=== PATIENT | female | born 1950 | race Caucasian/White ===

== ENCOUNTER → 2016-07-11 | Outpatient (CLI) | payer MEDICAID, OTHER | LOC: M RAD 08:24 | PROVIDERS: ATTEND Neurological Surgery | DX: M47.896 Other spondylosis, lumbar region (principal); Z53.9 Procedure and treatment not carried out, unspecified reason ==

== ENCOUNTER → 2016-07-18 | Outpatient (CLI) | payer OTHER ==
--- NOTE | 2016-07-18 09:49 | REP ---
Clinical: Spondylosis. Technique: AP, lateral, bilateral oblique, flexion/extension, and coned-down views of the lumbosacral spine. Comparison: None. Findings: Age-related osteopenia is appreciated. There is no evidence for acute fracture / compression injury. Advanced degenerative disc osteophyte complex at the L1-L2 level includes anterior osteophytes with endplate sclerosis and disc space narrowing. Anterolisthesis at the L4-5 level of approximately 12 mm noted. Diffuse hypertrophic facet changes noted throughout the lumbar spine. Impression: Degenerative changes as described above. No acute fracture / compression injury. Signed by Bebo García MD 07/18/2016 09:40 A
--- NOTE | 2016-07-18 09:51 | REP ---
Clinical: Spondylosis. Technique: AP, lateral, flexion/extension, swimmer's, bilateral oblique and open mouth views. Comparison: None. Findings: Moderate to advanced multilevel degenerative changes are appreciated. Findings include osteophytosis, endplate sclerosis/irregularity and disc space narrowing most pronounced at the C4-5, C5-6, and C6-7 levels. Flexion suggests 1.5 mm of anterolisthesis at the C3-4 level. Acute fracture / compression injury. Spinous processes are intact. Prevertebral soft tissues are normal. Open mouth view demonstrates normal C1-C2 articulation and odontoid process. Impression: Moderate to advanced multilevel degenerative changes. Signed by Bebo García MD 07/18/2016 09:41 A
--- NOTE | 2016-07-20 06:12 | REP ---
MRI LUMBAR SPINE WITHOUT CONTRAST: HISTORY: Back pain. Decreased signal intensity on T2-weighted images is present in the lumbar intervertebral discs. The discs are decreased in height. These findings are consistent with disc degeneration. A diffuse disc bulge with associated osteophyte formation is present in the L1-2 level. There is minimal compression of the thecal sac. The L1 nerves exit the neural foramina without compression. A diffuse disc bulge is present at the L2-3 level. There is minimal compression of the thecal sac. The L2 nerves exit the neural foramina without compression. There is no disc bulge or herniation at the L3-4 level. The L3 nerves exit the neural foramina without compression. A diffuse disc bulge and small central disc protrusion are present at the L4-5 level. There is hypertrophy of the ligamenta flava and posterior articulating facets. There are 5 mm of grade 1 spondylolisthesis of L4 on 5. These findings produce moderate central canal stenosis. There is compression of the L4 nerves in the neural foramina. A diffuse disc bulge is present at the L5-S1 level. This abuts the thecal sac and S1 nerves. There is hypertrophy of the posterior articulating facets. The L5 nerves exit the neural foramina without compression. The conus medullaris is normal in appearance terminating at the level of the T12-L1 intervertebral disc. Increased signal intensity on T2-weighted images is present in the end plates of the L1 and 2 vertebral bodies. This represents degenerative change. A 4.6 cm cyst is present in the right kidney. IMPRESSION: 1. Diffuse disc bulge with associated osteophyte formation at the L1-2 level with minimal thecal sac compression. 2. Diffuse disc bulge at the L2-3 level with minimal thecal sac compression. 3. Moderate central canal stenosis at the L4-5 level secondary to disc bulge, disc protrusion, ligamentous and facet hypertrophy, and grade 1 spondylolisthesis. There is compression of the L4 nerves in the neural foramina. 4. Diffuse disc bulge at the L5-S1 level. This abuts the thecal sac and S1 nerves. 5. There is a 4.6 cm right renal cyst. Ultrasound may be helpful for further evaluation. Signed by Robert Haynes MD 07/20/2016 08:24 A
== END ==
LOC: M RAD 09:09
PROVIDERS: ATTEND Neurological Surgery
DX: M47.896 Other spondylosis, lumbar region (principal); M47.892 Other spondylosis, cervical region; M51.26 Other intervertebral disc displacement, lumbar region; M51.27 Other intervertebral disc displacement, lumbosacral region; M48.06 Spinal stenosis, lumbar region; M43.16 Spondylolisthesis, lumbar region; N28.1 Cyst of kidney, acquired

== ENCOUNTER 2016-09-17 18:34 | Emergency (ER) | payer OTHER ==
[~2016-09-17] VITALS: Ht 152.4 cm; Wt 76.2 kg
[2016-09-17] MEDS ORDERED: ALBU17IN INH (19:04)
[2016-09-17] MEDS ORDERED: METF500T4 PO (19:04)
[2016-09-17] MEDS ORDERED: VITA50003 PO (19:04)
[2016-09-17] MEDS ORDERED: GLYB5TA PO (19:04)
[2016-09-17] MEDS ORDERED: SIMV20TA2 PO (19:04)
[2016-09-17] MEDS ORDERED: LOSA50TA20 PO (19:04)
[2016-09-17] MEDS ORDERED: METO50TA2 PO (19:04)
[2016-09-17] MEDS ORDERED: CITA40TA4 PO (19:04)
[2016-09-17 20:54] LABS: VENOUS BASE EXCESS 3.1 (-2.0-2.0); VENOUS O2 SATURATION 61.6 % (60.0-80.0); VENOUS PARTIAL PRESSURE O2 34.4 mmHg (30.0-50.0); VENOUS STANDARD HCO3 26.1 MEQ/L; VENOUS TOTAL CO2 32.4 MEQ/L (24.0-28.0)
[2016-09-17 21:01] LABS: BASO % 0.5 % (0.0-1.0); EOS # 0.1 K/mm3 (0.0-0.50); EOS % 0.8 % (0.0-3.0); LARGE UNSTAINED CELL # 0.2 K/mm3 (0.0-0.4); LARGE UNSTAINED CELL % 2.2 % (0.0-4.0); LYMPH # 2.9 K/mm3 (1.5-4.5); LYMPH % 33.1 % (24.0-44.0); MEAN CORPUSCULAR HEMOGLOBIN 33.1 pg (27.0-33.0); MEAN CORPUSCULAR HGB CONC 33.5 g/dl (32.0-36.5); MEAN CORPUSCULAR VOLUME 98.7 fl (80.0-96.0); MONO # 0.7 K/mm3 (0.0-0.8); MONO % 8.2 % (0.0-5.0); NEUTROPHILS # 4.8 K/mm3 (1.8-7.7); NEUTROPHILS % 55.1 % (36.0-66.0); PLATELET COUNT, AUTOMATED 203 k/mm3 (150-450); RED CELL DISTRIBUTION WIDTH 13.2 % (11.5-14.5); WHITE BLOOD COUNT 8.6 K/mm3 (4.0-10.0)
[2016-09-17 21:21] LABS: ANION GAP 8 MEQ/L (8-16); BLOOD UREA NITROGEN 18 MG/DL (7-18); CALCIUM LEVEL 9.1 MG/DL (8.8-10.2); CARBON DIOXIDE LEVEL 32 MEQ/L (21-32); CHLORIDE LEVEL 100 MEQ/L (98-107); GLOMERULAR FILTRATION RATE > 60.0 (>45); GLUCOSE, FASTING 181 MG/DL (80-110); POTASSIUM SERUM 4.3 MEQ/L (3.5-5.1); SODIUM LEVEL 140 MEQ/L (136-145)
[2016-09-17] MEDS ORDERED: FUROSEMIDE 80 MG TAB PO ONE (21:45)
[2016-09-18] MEDS ORDERED: ENALAPRIL MALEATE 5 MG TAB PO ONE (00:15)
[2016-09-18] MEDS ORDERED: ENALAPRIL MALEATE 10 MG TAB PO ONE (00:15)
[2016-09-18 00:28] VITALS: BP 174/117
[2016-09-18 01:10] VITALS: BP 151/101
--- NOTE | 2016-09-18 01:46 | REP ---
Clinical: Dyspnea. Technique: PA and lateral. Comparison: 04/27/2014. Findings: Cardiac silhouette is stable and upper limits of normal. Atherosclerotic changes to the thoracic aorta noted. Lung agrawal demonstrate chronic changes and scattered basilar atelectasis cannot be excluded. No discrete focal consolidation, effusion, or pneumothorax. Skeletal structures intact. Impression: Chronic stable change. Chronic interstitial changes with possible basilar atelectasis. Signed by Bebo García MD 09/18/2016 01:37 A
--- NOTE | 2016-09-18 20:25 | ECGEPIP ---
Stationary ECG Study [facility] - ED Test Date: 2016-09-17 Pat Name: ERIN ALVAREZ Department: Room: - Gender: F Compliance Advisor: karina : 1950 Requested By: Tootie Gage Order Number: [id number] Reading MD: Cecilia Figueroa Measurements Intervals Cade Rate: 95 P: 45 CT: 144 QRS: -40 QRSD: 136 T: 136 QT: 380 QTc: 479 Interpretive Statements SINUS RHYTHM MARKED LEFT AXIS DEVIATION INTRAVENTRICULAR CONDUCTION DELAY POSSIBLE ANTERIOR MYOCARDIAL INFARCTION, OF INDETERMINATE AGE NO PRIOR FOR COMPARISON Electronically Signed On 09-18-2016 20:25:20 EDT by Cecilia Figueroa
== END 2016-09-18 01:46 | disposition home or self-care (01) ==
LOC: M ED 19:44
DX: I51.9 Heart disease, unspecified (principal); R05 Cough; E11.9 Type 2 diabetes mellitus without complications; I10 Essential (primary) hypertension; J44.9 Chronic obstructive pulmonary disease, unspecified; E78.5 Hyperlipidemia, unspecified; Z79.899 Other long term (current) drug therapy; Z79.82 Long term (current) use of aspirin; Z79.84 Long term (current) use of oral hypoglycemic drugs; Z88.8 Allergy status to other drugs, medicaments and biological substances

== ENCOUNTER 2016-09-23 11:17 | Inpatient (IN) | payer OTHER ==
[~2016-09-23] VITALS: Ht 152.4 cm; Wt 72.9 kg
[2016-09-23] MEDS: VARENICLINE 0.5 MG TABLET PO SCH (09:00)
[~2016-09-23 11:17] MED LIST: ALBU17IN INH; CITA40TA4 PO; GLYB5TA PO; LOSA50TA20 PO; METF500T4 PO; METO50TA2 PO; SIMV20TA2 PO; VITA50003 PO
[2016-09-23 15:00] VITALS: BP 141/98
[2016-09-23] MEDS ORDERED: ALBU17IN INH (15:58)
[2016-09-23] MEDS ORDERED: DRIS50002 PO (15:58)
[2016-09-23] MEDS ORDERED: CITA40TA4 PO (15:58)
[2016-09-23] MEDS ORDERED: GLUCAGON FOR INJ 1 MG VIAL (J1610) SC PRN (16:00)
[2016-09-23] MEDS ORDERED: DEXTROSE 50% 50 ML SYRINGE IV PRN (16:00)
[2016-09-23] MEDS ORDERED: GLUCOSE 4 GM CHEW TABLET PO PRN (16:00)
[2016-09-23 16:05] LABS: BASO % 0.5 % (0.0-1.0); EOS # 0.1 K/mm3 (0.0-0.50); EOS % 1.9 % (0.0-3.0); LARGE UNSTAINED CELL # 0.1 K/mm3 (0.0-0.4); LARGE UNSTAINED CELL % 1.8 % (0.0-4.0); LYMPH # 1.3 K/mm3 (1.5-4.5); MEAN CORPUSCULAR HGB CONC 32.2 g/dl (32.0-36.5); MEAN CORPUSCULAR VOLUME 99.4 fl (80.0-96.0); MONO # 0.6 K/mm3 (0.0-0.8); MONO % 8.6 % (0.0-5.0); NEUTROPHILS # 4.4 K/mm3 (1.8-7.7); NEUTROPHILS % 69.1 % (36.0-66.0); PLATELET COUNT, AUTOMATED 202 k/mm3 (150-450); RED CELL DISTRIBUTION WIDTH 13.3 % (11.5-14.5); WHITE BLOOD COUNT 6.4 K/mm3 (4.0-10.0)
[2016-09-23] MEDS ORDERED: GLYB5TA PO (16:08)
[2016-09-23] MEDS ORDERED: METF-414 PO (16:08)
[2016-09-23] MEDS ORDERED: FURO20TA2 PO (16:08)
[2016-09-23] MEDS ORDERED: LOSA50TA20 PO (16:08)
[2016-09-23] MEDS ORDERED: SIMV20TA2 PO (16:08)
[2016-09-23] MEDS ORDERED: ASPI1TAB PO (16:08)
[2016-09-23] MEDS ORDERED: FISH1000 PO (16:08)
[2016-09-23] MEDS ORDERED: ISOS30TA4 PO (16:08)
[2016-09-23] MEDS ORDERED: METO50TA2 PO (16:08)
--- NOTE | 2016-09-23 16:25 | REP ---
Chest one-view HISTORY: Shortness of breath Comparison: 09/17/2016 Increased density is present in the right lower lobe consistent with atelectasis or infiltrate. Linear density is present in the left lower lobe consistent with scar. The heart is normal in size. The pulmonary vasculature is normal in appearance. Impression: 1. Right lower lobe atelectasis or infiltrate. 2. Left lower lobe scar. Signed by Robert Haynes MD 09/23/2016 04:16 P
[2016-09-23 16:40] LABS: ALBUMIN 3.2 GM/DL (3.2-5.2); ALBUMIN/GLOBULIN RATIO 1.28 (1.00-1.93); ALKALINE PHOSPHATASE 74 U/L (45-117); ALT/SGPT 46 U/L (12-78); ANION GAP 5 MEQ/L (8-16); AST/SGOT 24 U/L (15-37); BILIRUBIN,TOTAL 0.5 MG/DL (0.2-1.0); BLOOD UREA NITROGEN 20 MG/DL (7-18); CALCIUM LEVEL 8.7 MG/DL (8.8-10.2); CARBON DIOXIDE LEVEL 36 MEQ/L (21-32); CHLORIDE LEVEL 99 MEQ/L (98-107); CREATININE FOR GFR 0.85 MG/DL (0.55-1.02); GLOMERULAR FILTRATION RATE > 60.0 (>45); GLUCOSE, FASTING 171 MG/DL (80-110); MAGNESIUM LEVEL 1.5 MG/DL (1.8-2.4); POTASSIUM SERUM 4.1 MEQ/L (3.5-5.1); SODIUM LEVEL 140 MEQ/L (136-145); TOTAL PROTEIN 5.7 GM/DL (6.4-8.2)
[2016-09-23] MEDS: VITAMIN D 1,000 INTERNATIONAL UNITS TABLET PO SCH (17:02)
[2016-09-23] MEDS: HumaLOG INSULIN (NovoLOG) PER UNIT SC SCH ×2 (17:02→20:07)
[2016-09-23] MEDS: HEPARIN SOD (PORCINE) 5000 UNITS/ML VIAL SC SCH ×2 (17:02→21:21)
[2016-09-23] MEDS: FUROSEMIDE 40 MG/4 ML VIAL (J1940) IV SCH (17:03)
--- NOTE | 2016-09-23 17:07 | HPE ---
DATE OF ADMISSION: 09/23/2016 PRIMARY CARE PROVIDER: KALEY Gonzalez SOUND ENGINEER AUDIO CONTROL: Dr. Cole CHIEF COMPLAINT: Shortness of breath and bilateral lower extremity edema. Direct admission from Dr. Coel's office. HISTORY OF PRESENT ILLNESS: This is a 66-year-old female patient with underlying medical history of depression, anxiety, history of hepatitis, vitamin D deficiency, congestive heart failure with systolic dysfunction, diabetes type 2, dyslipidemia, hypertension, obesity, cardiomyopathy with unknown etiology, ejection fraction of 25%, and smoker. Patient was sent in by Dr. Cole's office for congestive heart failure (CHF) exacerbation refractive of treatment as outpatient. As per patient, patient was in her normal state of health but since about six months ago, she started developing lower extremity edema with progressively worsening, with also orthopnea requiring two pillows and dyspnea on exertion that is progressively worsening and accelerated over the past month, has been following with Dr. Cole for the past one month. Denies history of heart attack, sleep apnea, strokes. Patient reported worsening bilateral lower extremity swelling. Reported had Doppler done negative for deep vein thrombosis (DVT). Electrocardiogram has also been done. Currently has just received a LifeVest from Dr. Cole's office. Furthermore, patient denies history of heart attack and is in the process of getting a new stress test but Dr. Cole would like to optimize the patient's heart failure medically before attempting a cardiac stress test. Patient on 40 mg of Lasix by mouth daily at home. Denies paroxysmal nocturnal dyspnea. Reported chest heaviness with ambulation. Denies any fevers, chills, chest pain. Reported cough productive of milky phlegm. Denies any sick contact. Lives at home with project inspector and children. PAST MEDICAL HISTORY: 1. Hypertension. 2. Dyslipidemia. 3. Type 2 diabetes. 4. Anxiety. 5. Depression. 6. Hepatitis. 7. Vitamin D deficiency. ALLERGIES: DUST MITES, LIPITOR, SEASONAL ALLERGIES. PAST SURGICAL HISTORY: 1. Appendectomy. 2. Hysterectomy. 3. Bilateral cataracts. FAMILY HISTORY: Father with aortic aneurysm and myocardial infarction ([place]) in the age 70s. SOCIAL HISTORY: Patient lives at home. Drinking beer twice year. Reported smoking half a pack of cigarettes for the past 40 years. Denies illicit drug use. Denies cocaine, heroin, marijuana. REVIEW OF SYSTEMS: Denies any headache or visual change. Reported a history of anxiety and depression. No suicidality. Denies any vision change or hearing change. Denies nausea or vomiting. Reported dyspnea on exertion and bilateral lower extremity edema. Reported chest pressure with ambulation. Reported cough. Denies any abdominal pain or diarrhea. Reported lower extremity swelling. Denies any dysuria or hematuria. Denies any headache, slurred speech, weakness. Denies any bleeding or bruising problems. Reported joint, knee and hip pain that is chronic. HOME MEDICATIONS: - isosorbide mononitrate 30 mg by mouth daily - losartan 100 mg by mouth daily - Lasix 40 mg by mouth daily - aspirin 81 mg by mouth daily - citalopram 40 mg by mouth daily - ergocalciferol 50,000 units by mouth once a week - fish oil 1000 mg by mouth daily - glyburide 5 mg by mouth daily - metformin 500 mg two tablets by mouth twice a day - metoprolol 50 mg by mouth twice a day - Zocor 20 mg by mouth daily PHYSICAL EXAMINATION: GENERAL: Patient alert and oriented times three, in no acute distress, morbidly obese. HEENT: Normocephalic, atraumatic. PULMONARY: Bilaterally clear to auscultation. No wheezes, rales, or rhonchi. CARDIAC: Regular, S1, S2. ABDOMEN: Obese, soft, positive bowel sounds. EXTREMITIES: 2+ bilateral lower extremity edema. Echocardiogram shows ejection fraction of 26%. EKG done at Dr. Cole's office shows left bundle branch block with sinus at 61. VITAL SIGNS: Temperature 98, pulse 74, respiratory rate 18, blood pressure 141/98, pulse oximetry 93% on room air. LABORATORY DATA: Still pending. ASSESSMENT AND PLAN: This is a 66-year-old female patient with underlying medical history of congestive heart failure with systolic dysfunction, ejection fraction of 26%, hypertension, dyslipidemia, type 2 diabetes, obesity, anxiety, depression, history of hepatitis and cardiomyopathy of unknown etiology admitted for acute congestive heart failure (CHF) exacerbation, direct admission from Dr. Cole's office. 1. Acute CHF exacerbation with fluid overload. Ejection fraction 26%. Cardiology, Dr. Cole, has been consulted. We will increase the patient's Lasix to 40 mg IV twice a day. Continue losartan, metoprolol, Zocor, aspirin, Imdur, plus strict intake and output and daily weights. We will monitor brain natriuretic peptide (BNP) as well as kidney function and electrolytes. Telemetry monitoring. Patient needs to have the LifeVest when off monitor. 2. Type 2 diabetes. Holding oral medications, insulin as per protocol. 3. Hypertension. Continue metoprolol, losartan, Imdur, Lasix, and adjust as needed. Followup blood pressure. 4. Depression and anxiety. Continue current medication. 5. Dyslipidemia. Continue statin. 6. Smoking. Counseling provided. Patient asked for Chantix. 7. Vitamin D deficiency. Continue current supplementation. 8. Deep vein thrombosis (DVT) prophylaxis. Heparin subcutaneous. DISPOSITION: Pending clinical improvement, physical therapy, cardiology followup.
[2016-09-23 19:00] VITALS: BP 132/88
[2016-09-23] MEDS: SIMVASTATIN 20 MG TAB PO SCH (21:20)
[2016-09-23] MEDS: METOPROLOL TART 50 MG TAB PO SCH (21:20)
[2016-09-23] MEDS ORDERED: SPIRONOLACTONE 12.5MG PER 1/2 TABLET PO ONE (22:15)
[2016-09-23] MEDS: MAGNESIUM OXIDE 400 MG TAB (MAG-OX) PO SCH (22:24)
[2016-09-24] VITALS (8 sets, daily range): BP systolic 120–153; BP diastolic 68–96
[2016-09-24] MEDS: HEPARIN SOD (PORCINE) 5000 UNITS/ML VIAL SC SCH ×3 (05:03→21:04)
[2016-09-24 05:23] LABS: MEAN CORPUSCULAR HEMOGLOBIN 32.3 pg (27.0-33.0); MEAN CORPUSCULAR HGB CONC 32.8 g/dl (32.0-36.5); MEAN CORPUSCULAR VOLUME 98.3 fl (80.0-96.0); RED CELL DISTRIBUTION WIDTH 13.4 % (11.5-14.5); WHITE BLOOD COUNT 7.4 K/mm3 (4.0-10.0)
[2016-09-24 05:46] LABS: ANION GAP 7 MEQ/L (8-16); BLOOD UREA NITROGEN 19 MG/DL (7-18); CALCIUM LEVEL 8.6 MG/DL (8.8-10.2); CARBON DIOXIDE LEVEL 33 MEQ/L (21-32); CHLORIDE LEVEL 98 MEQ/L (98-107); CREATININE FOR GFR 0.77 MG/DL (0.55-1.02); GLOMERULAR FILTRATION RATE > 60.0 (>45); GLUCOSE, FASTING 136 MG/DL (80-110); MAGNESIUM LEVEL 1.7 MG/DL (1.8-2.4); POTASSIUM SERUM 4.1 MEQ/L (3.5-5.1); SODIUM LEVEL 138 MEQ/L (136-145)
--- NOTE | 2016-09-24 07:28 | IPN ---
DATE: 09/24/[address] tells me that she feels markedly improved since yesterday. She is vastly less short of breath and her peripheral edema has improved as well. She denies any chest pain or palpitation and she was able to sleep without major difficulty. VITAL SIGNS: This morning, blood pressure 146/93, heart rate has been from 70s to 80s. She is afebrile. Saturation is 92% on room air. Fluid balance yesterday was about 2300 mL negative. Weight is documented 76.1 kg. She is alert, oriented, and appropriate. Her jugular venous pulse (JVP) is still quite high, at least 4-5 cm above the clavicle in semi-sitting position. LUNGS: Reasonably clear to auscultation with good air movement. HEART: Reveals regular rhythm. I do not appreciate any gallop, rub or murmur even though the heart sounds are rather muffled I suspect due to underlying chronic obstructive pulmonary disease (COPD). ABDOMEN: Soft, nontender. There is still about 1+ peripheral edema, a little more pronounced on the left lower extremity. NEUROLOGIC: She is intact. I do not appreciate any skin lesions. LABORATORY DATA: Her basic metabolic panel this morning is essentially normal. Potassium is 4.1, BUN 19, creatinine 0.8, and glucose 136. Magnesium is a little low at 1.7. Troponin has been negative. Her BNP yesterday was 950. CBC is normal. ASSESSMENT AND PLAN: Mrs. St is a 66-year-old lady who has risk factors for coronary artery disease (CAD) including type 2 diabetes, hypertension, dyslipidemia, and smoking who has known cardiomyopathy with severely reduced left ventricular systolic function. She presented to Dr. Cole's office yesterday with exacerbated state with essentially resting dyspnea. She is already on appropriate medications. The plan is for additional diuresis and tentatively consider coronary angiogram in order to rule out underlying coronary artery disease, which in my opinion sounds rather likely. So far, the treatment has been effective. She accomplished good diuresis and feels much improved. Her laboratories also remain fine. I am going to supplement her magnesium but otherwise I think we can continue the current management. Dr. Cole will see her back tomorrow. [facility] NURSING FACILITYGarry
[2016-09-24] MEDS: HumaLOG INSULIN (NovoLOG) PER UNIT SC SCH ×4 (08:19→20:39)
[2016-09-24] MEDS: VITAMIN D 1,000 INTERNATIONAL UNITS TABLET PO SCH (08:20)
[2016-09-24] MEDS: OMEGA-3 1050MG CAPSULE PO SCH (08:21)
[2016-09-24] MEDS: ISOSORBIDE MON. (IMDUR) 30 MG XR TAB PO SCH (08:21)
[2016-09-24] MEDS: LOSARTAN 50 MG TAB PO SCH (08:21)
[2016-09-24] MEDS: MAGNESIUM OXIDE 400 MG TAB (MAG-OX) PO SCH ×2 (08:22→21:03)
[2016-09-24] MEDS: CitaloPRAM (CeleXA) 20 MG TAB PO SCH (08:22)
[2016-09-24] MEDS: VARENICLINE 0.5 MG TABLET PO SCH (08:23)
[2016-09-24] MEDS: METOPROLOL TART 50 MG TAB PO SCH ×2 (08:23→21:03)
[2016-09-24] MEDS: ASPIRIN 81 MG ENTERIC TAB PO SCH (08:23)
[2016-09-24] MEDS: SPIRONOLACTONE 12.5MG PER 1/2 TABLET PO SCH (08:23)
[2016-09-24] MEDS: FUROSEMIDE 40 MG/4 ML VIAL (J1940) IV SCH ×2 (08:26→17:36)
[2016-09-24] MEDS ORDERED: MAG SULF 1GM/100ML (MAG RUN) 1 GM in APPROPRIATE DILUENT 1 EA IV ONE (08:30)
[2016-09-24] MEDS ORDERED: MAGNESIUM GLUCONATE 500 MG TAB PO SCH (09:00)
--- NOTE | 2016-09-24 19:28 | IPN ---
DATE: 09/24/2016 SUBJECTIVE: Patient is seen and examined. No acute events overnight. Reported respiration much improved, as well as lower extremity edema. Making urine. Denies any fever, chills, chest pain, pressure, discomfort. VITAL SIGNS: Temperature 98.1, pulse 64, respirations 23, blood pressure 132/88, pulse oximetry 93% on room air. LABORATORY DATA: WBC 7.4, hemoglobin and hematocrit 14.4 over 43.8, platelets 191. Chemistry: Sodium 138, potassium 4.1, chloride 98, bicarbonate 33, BUN 19, creatinine 0.77, magnesium 1.7. PHYSICAL EXAMINATION: GENERAL: Patient alert and oriented times three, obese, in no acute distress. HEENT: Normocephalic, atraumatic. PULMONARY: No significant wheeze. Minimal coarse breath sounds bilateral base. CARDIAC: Regular S1, S2. ABDOMEN: Soft, nontender, nondistended. EXTREMITIES: 2+ bilateral lower extremity edema. ASSESSMENT AND PLAN: This is a 66-year-old female patient with underlying medical history of congestive heart failure (CHF) with systolic dysfunction, ejection fraction (EF) of 26%, hypertension, dyslipidemia, type 2 diabetes, obesity, anxiety, depression, history of hepatitis, cardiomyopathy of unknown etiology, admitted for acute CHF exacerbation. Direct admission from Dr. Cole's office. 1. Acute CHF exacerbation with fluid overload, EF of 26%. Cardiology consulted. Appreciate Dr. Cole's and Dr. Harris's assistance. The patient with Lasix dose currently at 40 mg intravenous (IV) twice a day. Strict intake and output, daily weight. Losartan, metoprolol, Zocor, spironolactone, aspirin, and Imdur. Basic metabolic panel (BMP) appreciated. Cardiac enzymes appreciated. Telemetry monitoring. The patient need a life vest when off monitor. 2. Type 2 diabetes. Holding oral medications. Insulin as per protocol. 3. Hypertension. Continue metoprolol, losartan, Imdur, Lasix and spironolactone, and adjust as needed. Followup blood pressure. 4. Depression/anxiety. Continue home medications. 5. Dyslipidemia. Continue statin. 6. Smoking. Counseling provided. Patient asked for Chantix. 7. Vitamin D deficiency. Supplementation ordered. 8. Deep venous thrombosis (DVT) prophylaxis. Heparin subcutaneous. DISPOSITION PLANNING: Pending clinical improvement, physical therapy, cardiology followup. Likely patient will be transferred as per cardiology for cardiac catheterization tomorrow.
--- NOTE | 2016-09-24 20:22 | CR ---
DATE OF CONSULTATION: 09/23/2016 REFERRING PROVIDER: Dr. Woods. REASON FOR CONSULTATION: Congestive heart failure. HISTORY OF PRESENT ILLNESS: A 66-year-old woman well known by the office and was recently seen earlier this month because of a newly-diagnosed left bundle branch block and symptoms of shortness of breath. About a week ago, she had an echocardiogram that revealed a severely depressed global left ventricular systolic function. She was started on treatment and at that time, hospitalization was recommended because she was retaining fluids and she was having shortness of breath with activities and occasional chest discomfort. She was supposed to have a nuclear stress test, but only the resting portion of the test was done, and left ventricular ejection fraction (LVEF) also was severely depressed. There was some defect involving the anteroapical wall of the left ventricle. Last , she called the office because of increasing shortness of breath and hospitalization was recommended. She was evaluated at the emergency room (ER), given intravenous (IV) Lasix, then discharged home. She continues to be symptomatic with shortness of breath with activities, but thinks she is slightly feeling better. She continues to have chest discomfort with activities, relieved with rest. Her pedal edema has not changed. She does have some orthopnea. She denies any palpitations. Last Wednesday, a life vest was arranged for her, and she is currently wearing it. She denies any, nausea, vomiting, diarrhea, melena, or hematemesis. She has a cough but denies any hemoptysis. She has a long history of smoking. She has no focal manifestation. She has a past medical history positive for cardiomyopathy with a severely depressed global left ventricular systolic function, hypertension, hyperlipidemia, diabetes mellitus, left bundle branch block, arthritis. There is no known history of obstructive coronary artery disease, myocardial infarction, prior history of congestive heart failure, atrial fibrillation, cerebrovascular accident (CVA), sudden cardiac . There is no history of thyroid disease, kidney disease. MEDICATIONS PRIOR TO COMING TO THE HOSPITAL: - losartan 100 mg by mouth daily - Lasix 40 mg by mouth daily - aspirin 81 mg by mouth daily - isosorbide mononitrate 30 mg by mouth daily - glyburide 5 mg by mouth twice daily - metformin two tablets by mouth twice daily - metoprolol tartrate 50 mg by mouth twice a day - simvastatin 20 mg by mouth daily - fish oil 1000 mg by mouth daily - citalopram 40 mg by mouth daily - vitamin D 50,000 units weekly CURRENT MEDICATIONS: - isosorbide mononitrate 30 mg by mouth daily - losartan 100 mg by mouth daily - aspirin 81 mg by mouth daily - citalopram 40 mg by mouth daily - fish oil 1000 mg by mouth daily - metoprolol tartrate 50 mg by mouth twice a day - simvastatin 20 mg by mouth at hour of sleep - regular insulin coverage - Lasix 40 mg IV twice a day - heparin subcutaneous 5000 units every eight hours - vitamin D 1000 units by mouth daily - Chantix as directed Also on D50 as well as glucose and glucagon as needed for hyperglycemia. PAST SURGICAL HISTORY: Positive for appendectomy in 1969, hysterectomy in 1994, and bilateral cataract extraction about two years ago in 2014. SOCIAL HISTORY: The patient lives with her and she is a smoker. She denies any ethyl alcohol (EtOH) abuse. ALLERGIES: DUST, and she also complained of SEASONAL ALLERGIES. ADVANCE DIRECTIVES: The patient is a FULL CODE. She has a daughter who lives in the [place], [place] area. PHYSICAL EXAMINATION: The patient is alert and oriented, in no acute distress at rest, and her vital signs when I saw her revealed a blood pressure of 132/88 with a pulse of 84, respirations 20, and her maximum temperature was 98 degrees Fahrenheit with an oxygen saturation of 92-93% on room air. Examination of the head, ears, eyes, nose and throat: Atraumatic. Neck is supple with an extended jugular. The lungs reveal minimal crackles at the bases, more on the right than the left. The heart examination revealed a normal S1, S2 without gallops. The point of maximum impulse (PMI) is displaced inferiorly and laterally. There is no rub. There is a systolic murmur grade 1-2 over 6 at the lower left sternal border with no significant radiation and also heard at the apex. Abdomen is soft and nontender. Extremities revealed +2 to +3 bilateral lower leg edema. Neurological examination grossly is negative for focal deficits. LABORATORY DATA: CBC revealed a WBC of 6.4, hemoglobin 14.4, hematocrit 44.7, and platelets 202,000. BMP revealed a sodium of 140, potassium 4.1, chloride 99. CO2 36, BUN 20, creatinine 0.85, GFR more than 60, fasting glucose 171. Hemoglobin A1c was 7.6. Calcium was 8.7. Serum magnesium is 1.5. Liver enzymes revealed a total bilirubin of 0.5, AST 24, ALT 46, alkaline phosphatase 74. Total protein is 5.7 and albumin 3.2. Serum troponin was less than 0.02 times two. Serum pro-BNP was 950. Serum C-reactive protein is 0.50. IMAGING: Chest x-ray right lower lobe atelectasis or infiltrate. There is left lower lobe scar reported. IMPRESSION: Decompensated congestive heart failure secondary to left ventricular systolic dysfunction, severe, in this 66-year-old woman with a history of hypertension, hyperlipidemia, and diabetes mellitus. She has been having increasing shortness of breath with activities associated with chest discomfort. She also has been having increasing pedal edema and not responding to the outpatient treatment, and for this reason, she was transferred from the office and admitted for further management. We will continue current medications, and she will be started on spironolactone. We will monitor closely her blood urea nitrogen (BUN), creatinine, and serum potassium. The immediate plan is to proceed with a cardiac catheterization, hopefully by Wednesday. This was discussed with her, as well as her daughter, and they are in agreement. In the meantime, I will hold the metformin. It was a pleasure to participate in the care of Mrs. Marce St for cardiac evaluation. I will continue to monitor along with you. She appears to be stable. Tomorrow, Dr. Harris will be seeing her. Case was discussed earlier today with the hospitalist.
[2016-09-24] MEDS: SIMVASTATIN 20 MG TAB PO SCH (21:03)
[2016-09-25 03:59] VITALS: BP 144/91
[2016-09-25] MEDS: HEPARIN SOD (PORCINE) 5000 UNITS/ML VIAL SC SCH (06:06)
[2016-09-25 06:15] LABS: MEAN CORPUSCULAR HEMOGLOBIN 33.4 pg (27.0-33.0); MEAN CORPUSCULAR VOLUME 98.3 fl (80.0-96.0); RED CELL DISTRIBUTION WIDTH 13.3 % (11.5-14.5); WHITE BLOOD COUNT 6.3 K/mm3 (4.0-10.0)
[2016-09-25 06:31] LABS: ANION GAP 7 MEQ/L (8-16); BLOOD UREA NITROGEN 16 MG/DL (7-18); CALCIUM LEVEL 8.4 MG/DL (8.8-10.2); CARBON DIOXIDE LEVEL 34 MEQ/L (21-32); CHLORIDE LEVEL 98 MEQ/L (98-107); GLOMERULAR FILTRATION RATE > 60.0 (>45); GLUCOSE, FASTING 140 MG/DL (80-110); MAGNESIUM LEVEL 1.9 MG/DL (1.8-2.4); POTASSIUM SERUM 3.5 MEQ/L (3.5-5.1); SODIUM LEVEL 139 MEQ/L (136-145)
[2016-09-25 07:45] VITALS: BP 140/84
[2016-09-25] MEDS: HumaLOG INSULIN (NovoLOG) PER UNIT SC SCH (08:35)
[2016-09-25] MEDS: FUROSEMIDE 40 MG/4 ML VIAL (J1940) IV SCH (08:35)
[2016-09-25] MEDS: OMEGA-3 1050MG CAPSULE PO SCH (08:36)
[2016-09-25] MEDS: SPIRONOLACTONE 12.5MG PER 1/2 TABLET PO SCH (08:36)
[2016-09-25] MEDS: VITAMIN D 1,000 INTERNATIONAL UNITS TABLET PO SCH (08:38)
[2016-09-25] MEDS: LOSARTAN 50 MG TAB PO SCH (08:39)
[2016-09-25] MEDS: CitaloPRAM (CeleXA) 20 MG TAB PO SCH (08:39)
[2016-09-25] MEDS: ASPIRIN 81 MG ENTERIC TAB PO SCH (08:39)
[2016-09-25] MEDS: VARENICLINE 0.5 MG TABLET PO SCH (08:39)
[2016-09-25] MEDS: MAGNESIUM OXIDE 400 MG TAB (MAG-OX) PO SCH (08:40)
[2016-09-25] MEDS: METOPROLOL TART 50 MG TAB PO SCH (08:41)
[2016-09-25 08:43] VITALS: BP 140/84
[2016-09-25] MEDS: ISOSORBIDE MON. (IMDUR) 30 MG XR TAB PO SCH (08:43)
[2016-09-25] MEDS ORDERED: POTASSIUM CHLORIDE 10 MEQ SR TABLET PO ONE (09:00)
[2016-09-25 12:00] VITALS: BP 123/79
--- NOTE | 2016-09-26 15:05 | DSES ---
DATE OF ADMISSION: 09/23/2016 DATE OF DISCHARGE: 09/25/2016 PRIMARY CARE PROVIDER: Physician mobile sales assistant, Henrietta Gr BEAD FLIPPER: Dr. Cole FINAL DIAGNOSES: 1. Acute congestive heart failure exacerbation with systolic dysfunction. 2. Type 2 diabetes. 3. Hypertension. 4. Depression and anxiety. 5. Dyslipidemia. 6. Smoking. 7. Vitamin D deficiency. HISTORY OF PRESENT ILLNESS: This is a 66-year-old female patient with underlying medical history of depression, anxiety, history of hepatitis, vitamin D deficiency, congestive heart failure with systolic dysfunction, ejection fraction of 25-26%, diabetes, type 2, dyslipidemia, hypertension, obesity, cardiomyopathy, unknown etiology, smoker who was sent in from Dr. Cole's office for congestive heart failure refractory to treatment as outpatient. As per patient, patient was in her normal state of health since about 6 months ago. She started to have lower extremity edema, which was progressively worsening, and also orthopnea, dyspnea on exertion, progressive worsening, requiring two pillows, which accelerated over the past month. Has been followed by Dr. Cole for the past month and has received a LifeVest. Denies history of heart attack, sleep apnea, stroke. Patient reported worsening bilateral lower extremity edema. Reported Doppler was done, negative, as outpatient for deep vein thrombosis (DVT). Patient denies any chest pain, pressure, or discomfort. Denies any fevers, chills, chest pain. HOSPITAL COURSE: Patient was admitted to the hospital, and patient was diuresed. Initially oxygen provided. Later patient went off oxygen. Physical therapy was done. Patient's cardiac enzymes were done. Case was discussed with cardiology, who was consulted. As per cardiology, patient is to be diuresed and in the process of transferring patient to [facility] for cardiac catheterization. Telemetry was monitored. Patient currently feels comfortable. Reported feeling much better. Arrangements are made for patient to be transferred to [facility] for cardiac catheterization. DISCHARGE INSTRUCTIONS: Continue current medication. Further management as per cardiology. Patient is instructed to followup with cardiology for further care. Return to the hospital if symptoms worsen. Transfer to [facility] in [place] for possible cardiac catheterization. INPATIENT MEDICATIONS: - aspirin 81 mg by mouth daily - Celexa 40 mg by mouth daily - Lasix 40 mg intravenous (IV) twice a day - heparin subcutaneous 5000 units every 8 hours - Humalog insulin before meals, mealtime protocol - Imdur 30 mg by mouth daily - losartan 100 mg by mouth daily - magnesium oxide 400 mg by mouth twice a day - metoprolol tartrate 50 mg by mouth twice a day - fish oil one tablet by mouth daily - potassium chloride 40 mEq by mouth once given - Zocor 20 mg by mouth at bedtime - spironolactone 12.5 mg by mouth daily - Chantix 0.5 mg by mouth daily - vitamin D 1000 units by mouth daily
== END 2016-09-25 12:20 | disposition short-term general hospital (02) | DRG 194 ==
LOC: M ICU 14:26 → M PCU 09-24 22:19
PROVIDERS: ADMIT Hospitalist; ATTEND Hospitalist
DX: I50.21 Acute systolic (congestive) heart failure (principal); E55.9 Vitamin D deficiency, unspecified; I42.9 Cardiomyopathy, unspecified; E11.9 Type 2 diabetes mellitus without complications; I10 Essential (primary) hypertension; F32.9 Major depressive disorder, single episode, unspecified; F41.9 Anxiety disorder, unspecified; E78.5 Hyperlipidemia, unspecified; F17.210 Nicotine dependence, cigarettes, uncomplicated; E66.9 Obesity, unspecified; Z79.82 Long term (current) use of aspirin; Z79.899 Other long term (current) drug therapy; Z88.8 Allergy status to other drugs, medicaments and biological substances

== ENCOUNTER → 2016-10-29 | Outpatient (CLI) | payer OTHER ==
[~2016-10-29] MED LIST changes: +ASPI1TAB PO; +DRIS50002 PO; +FISH1000 PO; +FURO20TA2 PO; +ISOS30TA4 PO; +METF-414 PO
--- NOTE | 2016-10-30 07:13 | REP ---
Clinical: Lung screening. History of nicotine dependence. Comparison: 06/17/2016 Technique: Axial low-dose noncontrast images from the thoracic inlet to the upper abdomen using lung screening technique. Findings: The lung agrawal are well-aerated. Minimal scarring in the lingula, left upper lobe, and right middle lobe remains stable. Previously identified areas of ground-glass opacity and atelectasis have resolved. No new consolidation or effusion/pneumothorax. A 4 mm noncalcified nodules identified in the right lower lobe (image 64). Impression: Lung-RADS category II. 4 mm noncalcified nodule in the right lower lobe. Management recommendations includes 12-month low-dose CT screening followup. Signed by Bebo García MD 10/30/2016 07:04 A
== END ==
LOC: M RAD 14:36
PROVIDERS: ATTEND Internal Medicine Pulmonary Disease
DX: Z12.2 Encounter for screening for malignant neoplasm of respiratory organs (principal); R91.1 Solitary pulmonary nodule; Z87.891 Personal history of nicotine dependence

== ENCOUNTER → 2016-12-04 | Outpatient (CLI) | payer OTHER ==
[~2016-12-04] MED LIST changes: -METO50TA2 PO; +METO50TA7 PO; +VITA1CAP40 PO; -VITA50003 PO
--- NOTE | 2016-12-04 13:34 | REP ---
CT LUMBAR SPINE WITHOUT CONTRAST: HISTORY: Spondylosis. COMPARISON: MR 07/18/2016. A diffuse disc bulge with associated osteophyte formation is present at the L1-2 level. There is minimal compression of the thecal sac. The L1 nerves exit the neural foramina without compression. A diffuse disc bulge is present at the L2-3 level. There is minimal compression of the thecal sac. The L2 nerves exit the neural foramina without compression. There is no disc bulge or herniation at the L3-4 level. The L3 nerves exit the neural foramina without compression. A diffuse disc bugle and small central disc protrusion are present at the L4-5 level. There is hypertrophy of the ligamenta flava and posterior articulating facets. There are 6 mm of grade 1 spondylolisthesis of L4 and 5. These findings produce moderate central canal stenosis. There is compression of the L4 nerves in the neural foramina. A diffuse disc bulge is present at the L5-S1 level. This abuts the thecal sac. There is hypertrophy of the posterior articulating facets. The L5 nerves exit the neural foramina without compression. The lumbar intervertebral discs are decreased in height. Vacuum phenomenon is present at the L1-2 level. These findings are consistent with disc degeneration. There is scoliosis convex to the left. IMPRESSION: 1. Diffuse disc bulge with associated osteophyte formation at the L1-2 level with minimal thecal sac compression. 2. Diffuse disc bulge at the L2-3 level with minimal thecal sac compression. 3. Moderate central canal stenosis at the L4-5 level secondary to disc bulge, disc protrusion, ligamentous, and facet hypertrophy and grade 1 spondylolisthesis. There is compression of the L4 nerves in the neural foramina. 4. Diffuse disc bulge at the L5-S1 level. This abuts the thecal sac. There is no significant change compared to the previous study. Signed by Robert Haynes MD 12/04/2016 01:39 P
--- NOTE | 2016-12-04 13:47 | REP ---
Clinical: Renal cyst. Technique: Real time flynn scale and color evaluation using curved array transducer. Findings: Right kidney is relatively normal in reniform shape and echogenicity measuring 9.9 x 4.7 x 4.6 cm and includes 4.3 x 2.9 x 2.7 cm essentially simple upper pole cyst and suggestions for mild pelviectasis without irineo hydronephrosis which may be transient. No associated nephrolithiasis or renal mass lesion appreciated. Left kidney is normal in reniform shape and echogenicity measuring 11.2 x 4.1 x 4.6 cm without hydronephrosis, nephrolithiasis, cystic, or mass lesion. Bladder is unremarkable. Impression: 4.3 cm right upper pole renal cyst appears relatively simple and is unchanged when compared to CT dated 2004. Signed by Bebo García MD 12/04/2016 01:40 P
== END ==
LOC: M RAD 12:07
PROVIDERS: ATTEND Neurological Surgery
DX: N28.1 Cyst of kidney, acquired (principal); M47.896 Other spondylosis, lumbar region; M51.26 Other intervertebral disc displacement, lumbar region; M51.27 Other intervertebral disc displacement, lumbosacral region; M48.06 Spinal stenosis, lumbar region; M43.16 Spondylolisthesis, lumbar region

== ENCOUNTER → 2016-12-14 | Outpatient (CLI) | payer OTHER ==
--- NOTE | 2016-12-21 09:24 | DEXA ---
AP SPINE L1 - L4 1.097 -0.8 0.8 LT FEMUR TOTAL 0.775 -0.8 -0.7 RT FEMUR TOTAL 0.901 -0.8 0.3 TOTAL BODY TOTAL OTHER DUAL FEMUR FRAX* ASSESSMENT Risk factors: Tobacco user. 10 year probability of fracture Major osteoporotic fracture 9.8 % Hip fracture 2.0 % COMMENTS: Normal bone densitometry of the spine. There is low bone density of the hips. The density of the spine is decreased 8.9% since 12/11/2003. The density of the left hip has decreased 20.5% since 12/11/2003. The density of the right hip has decreased 14.6% since 12/11/2003. FOLLOW-UP: Recommendation for the next bone density exam: 2 years. BRIAN
== END ==
LOC: M WHC 13:26
PROVIDERS: ATTEND Neurological Surgery
DX: M47.896 Other spondylosis, lumbar region (principal); Z78.0 Asymptomatic menopausal state

== ENCOUNTER → 2017-01-05 | Outpatient (CLI) | payer OTHER ==
--- NOTE | 2017-01-19 00:15 | ECWPNPC ---
PATIENT NAME: ERIN ALVAREZ : 1950 GENDER: FEMALE VISIT DATE: 01/05/2017 DISCHARGE DATE: 01/05/17 1206 VISIT LOCKED DATE TIME: PHYSICIAN: SERGIO OCAMPO RESOURCE: SERGIO OCAMPO REASON FOR APPOINTMENT 1. BACK PAIN HISTORY OF PRESENT ILLNESS NEW PATIENT CONSULT: WHEN DID YOUR PAIN FIRST START? . BRIEFLY DESCRIBE HOW YOUR PAIN STARTED? . HOW DOES YOUR PAIN CHANGE WITH TIME? . DOES YOUR PAIN AWAKEN YOU FROM SLEEP? . HOW MANY HOURS OF SLEEP DO YOU NORMALLY GET? . ANY DIAGNOSTIC TESTING? . FACILITY WHERE TESTS WERE DONE? ____. PAIN TREATMENT TREATMENT YES CANCER HAVE YOU EVER HAD ANY TYPE OF CANCER?NO NO. 66 YEAR OLD FEMALE PATIENT WITH HISTORY OF CHRONIC LOW BACK PAIN. PATIENT DESCRIBES THE PAIN SHARP AND SHOOTING WITH A PAIN SCORE OF 8/10. PATIENT STATES HER BACK STARTED LAST AND IS UNSURE WHAT STARTED IT BUT IT HAS GOTTEN PROGRESSIVELY WORSE. PATIENT HAS TRIED PHYSICAL THERAPY BUT IT DID NOT HELP WITH PAIN RELIEF OR MOBILITY AND FUNCTIONALITY. CURRENTLY THE PATIENT IS JUST USING TYLENOL AND IBUPROFEN WHICH SHE STATES HELP BUT SHE HAS CONSTANT PAIN. PATIENT STATES THAT STANDING WILL SOMETIMES EASE THE PAIN BUT NOTHING TAKES RID OF IT COMPLETELY. PATIENT DENIES UNEXPLAINABLE WEIGHT LOSS, FEVER, CHILLS, NEW CHANGES ON HER URINARY OR BOWEL CONTROL. PAIN SCREENING: PATIENT HAS A COMPLAINT OF ACUTE OR CHRONIC PAIN :YES FALL RISK SCREENING: SCREENING :NO FALLS IN THE PAST YEAR [facility] INVENTORY: QUESTIONNAIRE ASSESSEDTBD SCORE VALUE CALCULATED TBD CURRENT MEDICATIONS TAKING GLYBURIDE 5 MG TABLET 1 TABLET ORALLY BID TAKING METOPROLOL TARTRATE 50 MG TABLET 1 TABLET WITH FOOD ORALLY TWICE A DAY TAKING LOSARTAN POTASSIUM 100 MG TABLET 1 TABLET ORALLY ONCE A DAY TAKING SIMVASTATIN 10 MG TABLET 1 TABLET IN THE EVENING ORALLY ONCE A DAY TAKING CITALOPRAM HYDROBROMIDE 40 MG TABLET 1 TAB ORALLY ONCE A DAY TAKING METFORMIN HCL 500 MG TABLET 1 TABLET WITH MEALS ORALLY TWICE A DAY TAKING VITAMIN D 40090 U TABLET 1 TAB ORALLY WEEKLY TAKING SPIRONOLACTONE 50 MG TABLET 1 TABLET ORALLY ONCE A DAY TAKING ASA 81 MGS TAB ORAL DAILY TAKING FUROSEMIDE 40 MG TABLET 1 OR 2 TABS ORALLY ONCE A DAY TAKES ONE TAB ONE DAY AND TWO TABS THE NEXT DAY TAKING FISH OIL 1000 MG CAPSULE 1 CAPSULE ORALLY ONCE A DAY TAKING VENTOLIN HFA 108 (90 BASE) MCG/ACT AEROSOL SOLUTION 2 PUFFS NEEDED INHALATION FOUR TIMES DAILY NEEDED PAST MEDICAL HISTORY ESSENTIAL HYPERTENSION LUMBAR SPONDYLOSIS CREVICAL SPONDLOSIS DIABETES OBESITY INFLAMMATORY AND TOXIC NEUROPATHY DIFFICULTY BREATHING/WHEEZING SOLITARY NODULE OF LEFT LUNG CHF ALLERGIES LISINOPRIL: INCREASED SOB: ALLERGY LIPITOR: SOB, SEVERE BONE PAIN: ALLERGY SEASONAL: WATERY EYES, SNEEZING, RUNNY NOSE: ALLERGY SURGICAL HISTORY BILATERAL CATARACT REMOVAL 2013 HYSTERECTOMY 1994 APPENDECTOMY 1970 TUBAL LIGATION 1980 FAMILY HISTORY FATHER: 75 YRS, DIAGNOSED WITH HEART DISEASE MOTHER: 74 YRS, DIAGNOSED WITH DIABETES 3 SON(S) , 1 DAUGHTER(S) - HEALTHY. MOM DUE TO SEPSIS. SOCIAL HISTORY GENERAL: TOBACCO USE ARE YOU A:CURRENT SMOKER HOW MANY CIGARETTES A DAY DO YOU SMOKE?6-10 HOW SOON AFTER YOU WAKE UP DO YOU SMOKE YOUR FIRST CIGARETTE?6-30 MIN HOW OFTEN DO YOU SMOKE CIGARETTES?EVERY DAY PATIENT COUNSELED ON THE DANGERS OF TOBACCO USE AND URGED TO QUIT:01/05/2017 HAS CHANIX BUT ISN'T READY TO START NOW ARE YOU INTERESTED IN QUITTING?NOT READY TO QUIT COUNSELED THE PATIENT ON SMOKING EFFECTS, EDUCATION [id number]/2017 ALCOHOL SCREENING POINTS0 INTERPRETATIONNEGATIVE RECREATIONAL DRUG USE DRUG USE?NO CAFFEINE CAFFEINE USE?YES HOW OFTEN AND HOW MUCH? 2 CUPS COFFEE/DAY OCCUPATION: UNEMPLOYED, VOLUNTEER INSTRUMENT PROCESSING TECH. DIET: CARBOHYDRATE CONTROLLED. EXERCISE: NO REGULAR EXERCISE. MARITAL STATUS: .. OTHERS AT HOME: S.O.,SON, SON'S GIRLFRIEND. PETS: NONE. CHEONDOISM [id number] NONE LANGUAGE LANGUAGES SPOKEN:[place] EDUCATION LEVEL OF EDUCATION:HIGH SCHOOL LEARNING BARRIERS / SPECIAL NEEDS BARRIERS TO LEARNING?NO HEARING IMPAIRED?NO VISION IMPAIRED?YES :CORRECTIVE LENSES COGNITIVELY IMPAIRED?NO READINESS TO LEARN?YES LEARNING PREFERENCES?YES :BOOKLETS, HANDOUTS, DEMONSTRATION/VERBAL INSTRUCTION LEARNING CAPABILITIES PRESENT?NO EMOTIONAL BARRIERS?NO SPECIAL DEVICES?NO HAND COPER NEEDED?NO PAIN CLINIC PFS, CLERGY, PUBLIC HEALTH REFERRALS PFS REFERRAL NEEDED?NO CLERGY REFERRAL NEEDED?NO PUBLIC HEALTH REFERRAL NEEDED?NO WAS THE PROVIDER NOTIFIED OF ANY PERTINENT INFO?NO HAS THE PATIENT BEEN EDUCATED REGARDING HIS/HER PLAN OF CARE?YES PLEASE DOCUMENT ANY ADDTIONAL DETAILS. ORIENTATION TO PAIN CENTER AND PLAN OF CARE PROVIDED AND PT. VERBALIZED UNDERSTANDING. HAS THE PATIENT BEEN EDUCATED REGARDING PAIN, THE RISK FOR PAIN, THE IMPORTANCE OF EFFECTIVE PAIN MANAGEMENT, AND THE PAIN ASSESSMENT PROCESS?YES PATIENT: ____. ADVANCE DIRECTIVES HEALTH CARE PROXY?NO WOULD YOU LIKE MORE INFORMATION?YES GIVEN DO YOU HAVE A DNR?NO WOULD YOU LIKE MORE INFORMATION?NO LIVING WILL?NO WOULD YOU LIKE MORE INFORMATION?NO POWER OF SMOG TECHNICIAN?NO WOULD YOU LIKE MORE INFORMATION?NO HOSPITALIZATION/MAJOR DIAGNOSTIC PROCEDURE SURGERIES AND CHILDBIRTH CHF 09/2016 REVIEW OF SYSTEMS REVIEWED BY: PROVIDER: SERGIO OCAMPO MD . CONSTITUTIONAL: ANY CHANGE IN YOUR MEDICAL CONDITION? NO . CHILLS NO . FEVER NO . INFECTION: DO YOU HAVE NEW INFECTIONS? NO . DO YOU HAVE HISTORY OF MRSA? NO . MUSCULOSKELETAL: ANY NEW PATTERNS OF PAIN OR NUMBNESS? NO . SYTEMIC LUPUS NO . GASTROENTEROLOGY: ANY NEW CHANGE IN BOWEL CONTROL? NO . BARRETTS ESOPHAGUS NO . CIRRHOSIS NO . HEPATITIS NO . LIVER FAILURE NO . ACID REFLUX NO . UNEXPLAINED WEIGHT LOSS NO . GENITOURINARY: ANY NEW CHANGE IN BLADDER CONTROL? NO . IS THERE A CHANCE YOU COULD BE ? NO . HEMATOLOGY/LYMPH: DO YOU TAKE ANY BLOOD THINNERS? (FOR EXAMPLE- COUMADIN, PLAVIX, AGGRENOX, PLATEL, PRADAXA, OR XARELTO) NO . WHEN WAS YOUR LAST DOSE? DATE: TIME: . LOW PLATELET COUNT NO . SICKLE CELL DISEASE NO . VON WILLIEBRANDS NO . FACTOR V LEIDEN NO . THALLASEMIA NO . ANEMIA NO . EASY BRUISING NO . NEUROLOGY: HAVE YOU FALLEN IN THE PAST 6 MONTHS? NO . ANY NEW EXTREMITY NUMBNESS OR WEAKNESS? NO . HEAD INJURY NO . DEMENTIA NO . CEREBRAL PALSY NO . MULTIPLE SCLEROSIS NO . DIZZINESS NO . HEADACHE NO . STROKES NO . VERTIGO NO . CARDIOLOGY: DO YOU HAVE A PACEMAKER OR DEFIBRILLATOR? YES, PORTABLE DEFIB. . ANGINA NO . HEART ATTACK NO . HEART SURGERY NO . CONGESTIVE HEART FAILURE/FLUID OVERLOAD YES . CHEST PAIN NO . HIGH BLOOD PRESSURE ON MEDICATION(S) . IRREGULAR HEART BEAT NO . RESPIRATORY: HAVE YOU BEEN SICK IN THE PAST WEEK? NO . FEVER NO . FLU LIKE SYMPTOMS? NO . CPAP NO . BYPAP NO . ASTHMA NO . EMPHYSEMA NO . CHRONIC LUNG DISEASES NO . SHORTNESS OF BREATH ON EXERTION NO . DO YOU USE ANY TYPE OF TOBACCO (SMOKE, SMOKELESS, CHEW)? YES, CURRENT SMOKER . COUGH NO . SNORING NO . INTEGUMENTARY: DO YOU HAVE ANY RASHES OR OPEN SORES? NO . ALLERGIC/IMMUNO: ARE YOU ALLERGIC TO SHELLFISH OR IV DYE? NO . ANY NEW ALLERGIES? NO . PSYCHIATRIC: DO YOU HAVE THOUGHTS OF HURTING YOURSELF OR SOMEONE ELSE? NO . ARE YOU ABUSED, NEGLECTED, OR IN AN UNSAFE ENVIRONMENT? NO . ENDOCRINOLOGY: ARE YOU DIABETIC? YES . THYROID DISORDER NO . OTHER: DO YOU NEED ANY PRESCRIPTIONS? NO . IF YES, PLEASE LIST: ____ . ANY NEW PROBLEMS WITH YOUR MEDICATIONS? NO . WHEN DID YOU LAST EAT? ____ . WHEN DID YOU LAST DRINK? ____ . WHAT DID YOU LAST DRINK? ____ . NAME OF PERSON DRIVING YOU HOME? ____ . DO YOU HAVE ANY OTHER QUESTIONS OR CONCERNS NO . VITAL SIGNS WT 147 LBS, HT 51 IN, BMI 39.73 INDEX, BP 135/73 MM HG, HR 75 /MIN, RR 18 /MIN, TEMP 96.6 F, OXYGEN SAT % 96%, NA INITIALS AW 0913, REVIEWED BY: KG. EXAMINATION : PATIENT IS ALERT O X 3 AND COOPERATIVE. TENDERNESS IN THE LOWER BACK ESPECIALLY ON THE LEFT SIDE AND PARASPINAL MUSCLE GROUP. LIMPING FROM THE LEFT LEG. LEFT LEG WEAKER THEN THE RIGHT AT EXTENSION AND FLEXION. MRI OF THE LUMBAR SPINE DONE ON 07/18/16 SHOWS MULTIPLE DISC BULGES, A DISC PROTRUSION AT L4-L5 AND CANAL STENOSIS. ASSESSMENTS INTERVERTEBRAL DISC DISORDERS WITH RADICULOPATHY, LUMBAR REGION - M51.16 (PRIMARY) MYALGIA - M79.1 INTERVERTEBRAL DISC DISORDERS WITH RADICULOPATHY, LUMBOSACRAL REGION - M51.17 SPONDYLOSIS WITHOUT MYELOPATHY OR RADICULOPATHY, LUMBAR REGION - M47.816 SPONDYLOSIS WITHOUT MYELOPATHY OR RADICULOPATHY, LUMBOSACRAL REGION - M47.817 TREATMENT INTERVERTEBRAL DISC DISORDERS WITH RADICULOPATHY, LUMBAR REGION NOTES: WE DISCUSSED SEVERAL ISSUES WITH MRS. ALVAREZ'S PAIN MANAGEMENT CASE. AT THIS TIME THE PATIENT WILL CONTINUE TO USE IBUPROFEN AND TYLENOL NEEDED. AFTER VIEWING THE MRI AND THE PATIENT STATING WHERE HER WORST PAIN IS, I WOULD LIKE TO PROCEED WITH A INTERLAMINA LUMBAR EPIDURAL. WE DISCUSSED THE RISKS, BENENFITS, AND ALTNERATIVES OF THE INJECTION AND THE PATIENT WOULD LIKE TO PROCEED AT THIS TIME. INSTRUCTIONS WERE GIVEN, QUESTIONS WERE ANSWERED, PATIENT REPORTS UNDERSTANDING AND AGREES WITH THE PLAN. I, MAGGIE PARMAR, DOCUMENTED THE ABOVE INFORMATION ACTING A SCRIBE FOR DR. OCAMPO. I HAVE REVIEWED THE ABOVE DOCUMENT, WRITTEN BY MAGGIE SALDIVAR AND I VERIFY THAT IT IS ACCURATE. DEAR DR. MATA:THANK YOU FOR YOUR KIND REFERRAL OF MRS. ALVAREZ. YOU WANT TO DISCUSS HER CASE WITH ME PLEASE CALL ME AT THE PAIN CENTER AT [phone]. SINCERELY,SERGIO OCAMPO, [facility]. OTHERS NOTES: WHAT IS LUMBAR EPIDURAL INJECTION? MATERIAL WAS PRINTED,LUMBAR EPIDURAL INJECTION: RECOVERY AT HOME MATERIAL WAS PRINTED,LUMBAR EPIDURAL INJECTION: YOUR PROCEDURE MATERIAL WAS PRINTED. PREVENTIVE MEDICINE PAIN CLINIC TEACHING: PROCEDURE TEACHING PRE LUMBAR EPIDURAL STEROID INJECTION INSTRUCTIONS REVIEWED WITH PT. VERBALIZED UNDERSTANDING.. PROCEDURE CODES FA211 ESTABILISHED [facility]IENT [facility] FAC[facility] CHARGE G8427 DOC MEDS VERIFIED W/PT OR RE G6631 PAIN ASSESS POS TOOL F/U PLAN DOC DISPOSITION & COMMUNICATION FOLLOW UP L[facility] AFTER APPROVAL ELECTRONICALLY SIGNED BY SERGIO OCAMPO MD ON 01/18/2017 AT 05:47 PM EDT DISCLAIMER : THIS IS A VISIT SUMMARY EXTRACTED FROM THE [employer] CHART. IT IS NOT A COPY OF THE [employer] PROGRESS NOTE. BRIAN
== END ==
LOC: M PAIN 09:15
PROVIDERS: ATTEND Anesthesiology
DX: G89.29 Other chronic pain (principal); M51.16 Intervertebral disc disorders with radiculopathy, lumbar region; M51.17 Intervertebral disc disorders with radiculopathy, lumbosacral region; M47.816 Spondylosis without myelopathy or radiculopathy, lumbar region; M47.817 Spondylosis without myelopathy or radiculopathy, lumbosacral region; M79.1 Myalgia; I10 Essential (primary) hypertension; E11.9 Type 2 diabetes mellitus without complications; J44.9 Chronic obstructive pulmonary disease, unspecified; F17.210 Nicotine dependence, cigarettes, uncomplicated; Z88.8 Allergy status to other drugs, medicaments and biological substances; Z79.84 Long term (current) use of oral hypoglycemic drugs; Z79.899 Other long term (current) drug therapy; Z95.810 Presence of automatic (implantable) cardiac defibrillator

== ENCOUNTER → 2017-02-05 | Outpatient (CLI) | payer OTHER ==
--- NOTE | 2017-02-24 01:58 | ECWPNPC ---
PATIENT NAME: ERIN ALVAREZ : 1950 GENDER: FEMALE VISIT DATE: 02/05/2017 DISCHARGE DATE: 02/05/17 1447 VISIT LOCKED DATE TIME: PHYSICIAN: BARBARA HERNANDEZ RESOURCE: BARBARA HERNANDEZ REASON FOR APPOINTMENT 1. MEDS HISTORY OF PRESENT ILLNESS HISTORY OF PRESENT ILLNESS: PAIN THE PATIENT DESCRIBES THE PAIN... FALL RISK SCREENING: SCREENING :NO FALLS IN THE PAST YEAR TODAY'S VISIT: NOTES: RATES PAIN TODAY 5/10 TODAY AND WITH STANDING AND WALKING 8-10/10. NOTES PAIN CENTERED OVER LEFT SACRUM AND LOW BACK. DESCRIBES PAIN STABBING, THROBBING, AND SHOOTING. THIS IS INTERMITTANT. PAIN WILL SHOOT INTO THE LEFT HIP TO THE LEVEL OF THE KNEE. IS CURRENTLY EING SCHEDULED FOR LUMBAR EPIDURAL NEXT WEEK. . CURRENT MEDICATIONS TAKING GLYBURIDE 5 MG TABLET 1 TABLET ORALLY BID TAKING METOPROLOL TARTRATE 50 MG TABLET 1 TABLET WITH FOOD ORALLY TWICE A DAY TAKING LOSARTAN POTASSIUM 100 MG TABLET 1 TABLET ORALLY ONCE A DAY TAKING SIMVASTATIN 10 MG TABLET 1 TABLET IN THE EVENING ORALLY ONCE A DAY TAKING CITALOPRAM HYDROBROMIDE 40 MG TABLET 1 TAB ORALLY ONCE A DAY TAKING METFORMIN HCL 500 MG TABLET 1 TABLET WITH MEALS ORALLY TWICE A DAY TAKING VITAMIN D 01658 U TABLET 1 TAB ORALLY WEEKLY TAKING SPIRONOLACTONE 50 MG TABLET 1 TABLET ORALLY ONCE A DAY TAKING ASA 81 MGS TAB ORAL DAILY TAKING FUROSEMIDE 40 MG TABLET 1 OR 2 TABS ORALLY ONCE A DAY TAKES ONE TAB ONE DAY AND TWO TABS THE NEXT DAY TAKING FISH OIL 1000 MG CAPSULE 1 CAPSULE ORALLY ONCE A DAY TAKING VENTOLIN HFA 108 (90 BASE) MCG/ACT AEROSOL SOLUTION 2 PUFFS NEEDED INHALATION FOUR TIMES DAILY NEEDED MEDICATION LIST REVIEWED AND RECONCILED WITH THE PATIENT PAST MEDICAL HISTORY ESSENTIAL HYPERTENSION LUMBAR SPONDYLOSIS CREVICAL SPONDLOSIS DIABETES OBESITY INFLAMMATORY AND TOXIC NEUROPATHY DIFFICULTY BREATHING/WHEEZING SOLITARY NODULE OF LEFT LUNG CHF ALLERGIES LISINOPRIL: INCREASED SOB: ALLERGY LIPITOR: SOB, SEVERE BONE PAIN: ALLERGY SEASONAL: WATERY EYES, SNEEZING, RUNNY NOSE: ALLERGY SURGICAL HISTORY BILATERAL CATARACT REMOVAL 2013 HYSTERECTOMY 1994 APPENDECTOMY 1970 TUBAL LIGATION 1981 HOSPITALIZATION/MAJOR DIAGNOSTIC PROCEDURE SURGERIES AND CHILDBIRTH [facility] 09/2016 REVIEW OF SYSTEMS REVIEWED BY: PROVIDER: BARBARA HERNANDEZ POLITICAL WORKER . CONSTITUTIONAL: ANY CHANGE IN YOUR MEDICAL CONDITION? NO . CHILLS NO . FEVER NO . INFECTION: DO YOU HAVE NEW INFECTIONS? NO . DO YOU HAVE HISTORY OF MRSA? NO . MUSCULOSKELETAL: ANY NEW PATTERNS OF PAIN OR NUMBNESS? NO . GASTROENTEROLOGY: ANY NEW CHANGE IN BOWEL CONTROL? NO . GENITOURINARY: ANY NEW CHANGE IN BLADDER CONTROL? NO . IS THERE A CHANCE YOU COULD BE ? NO . HEMATOLOGY/LYMPH: DO YOU TAKE ANY BLOOD THINNERS? (FOR EXAMPLE- COUMADIN, PLAVIX, AGGRENOX, PLATEL, PRADAXA, OR XARELTO) NO . WHEN WAS YOUR LAST DOSE? DATE: TIME: . NEUROLOGY: HAVE YOU FALLEN IN THE PAST 6 MONTHS? NO . ANY NEW EXTREMITY NUMBNESS OR WEAKNESS? NO . CARDIOLOGY: DO YOU HAVE A PACEMAKER OR DEFIBRILLATOR? YES - HAD LIFEVEST - EXTERNAL DEFIBRILLATOR. . CHEST PAIN PATIENT DENIES . RESPIRATORY: HAVE YOU BEEN SICK IN THE PAST WEEK? NO . FEVER NO . FLU LIKE SYMPTOMS? NO . COUGH NO . INTEGUMENTARY: DO YOU HAVE ANY RASHES OR OPEN SORES? NO . ALLERGIC/IMMUNO: ARE YOU ALLERGIC TO SHELLFISH OR IV DYE? NO . ANY NEW ALLERGIES? NO . PSYCHIATRIC: DO YOU HAVE THOUGHTS OF HURTING YOURSELF OR SOMEONE ELSE? NO . ARE YOU ABUSED, NEGLECTED, OR IN AN UNSAFE ENVIRONMENT? NO . ENDOCRINOLOGY: ARE YOU DIABETIC? YES . OTHER: DO YOU NEED ANY PRESCRIPTIONS? NO . IF YES, PLEASE LIST: ____ . ANY NEW PROBLEMS WITH YOUR MEDICATIONS? NO . WHEN DID YOU LAST EAT? ____ . WHEN DID YOU LAST DRINK? ____ . WHAT DID YOU LAST DRINK? ____ . NAME OF PERSON DRIVING YOU HOME? ____ . DO YOU HAVE ANY OTHER QUESTIONS OR CONCERNS NO . VITAL SIGNS WT 148 LBS, HT 51 IN, BMI 40.00 INDEX, BP 120/74 MM HG, HR 79 /MIN, RR 18 /MIN, TEMP 97.2 F, OXYGEN SAT % 96, REVIEWED BY: NL. EXAMINATION GENERAL EXAMINATION: PSYCHALERT , ORIENTED X 3 , APPROPRIATE MOOD AND AFFECT . CHEST:LIFE VEST IN PLACE. LUNGS:BILATERAL SCATTERED WHEEZES.. HEART:HEART TONES DISTANT, REGULAR. MUSCULOSKELETAL:EXQUISITE TENDERNESS OVER LUMBAR SPINOUS PROCESSES AND OVER LEFT SACRUM. NO SPECIFIC TENDERNESS OVER OVER LEFT SIJ. LEFT QUAD WEAKNESS NOTED. POSTURE UPRIGHT. GAIT NONANTALGIC. EXTREMITIES:NO EDEMA. 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 MINISTER IS DR [facility] OCAMPO DID COME TO THE ROOM AND REVIEWED ISSUES RELATED TO HER EXTERNAL DEFIBRILLATOR AND HER HEART ISSUES. PROCEDURE CODES FA211 ESTABILISHED PATIENT [facility] FACILITY CHARGE DISPOSITION & COMMUNICATION FOLLOW UP CANCEL LESI - SCHED WITH SW IN 1 MONTH (REASON: BACK/LEG PAIN) ELECTRONICALLY SIGNED BY TREVOR MORENO ON 02/23/2017 AT 06:38 PM EDT DISCLAIMER : THIS IS A VISIT SUMMARY EXTRACTED FROM THE [employer] CHART. IT IS NOT A COPY OF THE [employer] PROGRESS NOTE. BRIAN
== END ==
LOC: M PAIN 13:00
PROVIDERS: ATTEND Nurse Practitioner Family
DX: G89.29 Other chronic pain (principal); M51.16 Intervertebral disc disorders with radiculopathy, lumbar region; M51.17 Intervertebral disc disorders with radiculopathy, lumbosacral region; M47.816 Spondylosis without myelopathy or radiculopathy, lumbar region; M47.817 Spondylosis without myelopathy or radiculopathy, lumbosacral region; M79.1 Myalgia; I10 Essential (primary) hypertension; E11.9 Type 2 diabetes mellitus without complications; Z88.8 Allergy status to other drugs, medicaments and biological substances; J30.2 Other seasonal allergic rhinitis; E66.9 Obesity, unspecified; Z68.41 Body mass index [BMI] 40.0-44.9, adult; Z79.84 Long term (current) use of oral hypoglycemic drugs; Z79.899 Other long term (current) drug therapy

== ENCOUNTER → 2017-02-10 | Outpatient (CLI) | payer OTHER ==
--- NOTE | 2017-02-10 11:01 | REP ---
Clinical: Spondylosis. Comparison: 07/18/2016 Technique: AP, lateral, bilateral oblique, flexion/extension and coned-down views of the lumbosacral spine. Findings: Chronic levoconvex scoliosis and degenerative disc osteophyte complexes are again appreciated without significant change. Specifically, advanced changes at the L1-2 level include bridging osteophyte with endplate sclerosis and near complete disc space obliteration and grade 1 anterolisthesis at the L4-5 level with disc space narrowing remains approximately 8 mm. No acute fracture / compression injury. Impression: Chronic stable multilevel degenerative changes. Signed by Bebo García MD 02/10/2017 10:52 A
== END ==
LOC: M RAD 10:25
PROVIDERS: ATTEND Physician Assistant
DX: M47.896 Other spondylosis, lumbar region (principal)

== ENCOUNTER → 2017-02-18 | Outpatient (CLI) | payer OTHER ==
[~2017-02-18] MED LIST changes: +ISOVUE-M 300 61% 15ML VIAL (Q9967) As Ordered ONE; +LIDOCAINE 1% SDV INJ 30 ML VIAL As Ordered ONE; +diazePAM 5 MG TAB As Ordered ONE; +methylPREDNISolone SUSP 40 MG/ML (DEPO-medrol) VIAL (J1030) As Ordered ONE; +oxyCODONE 5MG TAB As Ordered ONE
--- NOTE | 2017-02-18 15:56 | REP ---
Partial lumbar spine series: Five views . History: Injection procedure for pain. Nine seconds of fluoroscopy time is reported. Findings: A sequence of five fluoroscopically obtained last image hold procedural spot radiographs of the lumbar spine document needle position and contrast injection associated with injection procedure. Signed by Pedro Pablo Khan MD 02/18/2017 03:48 P
--- NOTE | 2017-02-20 23:36 | ECWPNPC ---
PATIENT NAME: ERIN ALVAREZ : 1950 GENDER: FEMALE VISIT DATE: 02/18/2017 DISCHARGE DATE: 02/18/171456 VISIT LOCKED DATE TIME: PHYSICIAN: SERGIO OCAMPO RESOURCE: SERGIO OCAMPO REASON FOR APPOINTMENT 1. LESI L4-L5 HISTORY OF PRESENT ILLNESS HISTORY OF PRESENT ILLNESS: PAIN THE PATIENT DESCRIBES THE PAIN... FALL RISK SCREENING: SCREENING :NO FALLS IN THE PAST YEAR CURRENT MEDICATIONS TAKING GLYBURIDE 5 MG TABLET 1 TABLET ORALLY BID, NOTES: 02/18/17929 TAKING METOPROLOL TARTRATE 50 MG TABLET 1 TABLET WITH FOOD ORALLY TWICE A DAY, NOTES: 02/18/17929 TAKING LOSARTAN POTASSIUM 100 MG TABLET 1 TABLET ORALLY ONCE A DAY, NOTES: 02/18/17929 TAKING SIMVASTATIN 10 MG TABLET 1 TABLET IN THE EVENING ORALLY ONCE A DAY, NOTES: 02/18/17929 TAKING CITALOPRAM HYDROBROMIDE 40 MG TABLET 1 TAB ORALLY ONCE A DAY, NOTES: 02/18/17929 TAKING METFORMIN HCL 500 MG TABLET 1 TABLET WITH MEALS ORALLY TWICE A DAY, NOTES: 02/17/172329 TAKING VITAMIN D 06333 U TABLET 1 TAB ORALLY WEEKLY, NOTES: 02/18/17929 TAKING SPIRONOLACTONE 50 MG TABLET 1 TABLET ORALLY ONCE A DAY, NOTES: 02/18/17929 TAKING ASA 81 MGS TAB ORAL DAILY, NOTES: 02/17/17929 TAKING FUROSEMIDE 40 MG TABLET 1 OR 2 TABS ORALLY ONCE A DAY TAKES ONE TAB ONE DAY AND TWO TABS THE NEXT DAY, NOTES: 02/18/17929 TAKING FISH OIL 1000 MG CAPSULE 1 CAPSULE ORALLY ONCE A DAY, NOTES: 02/18/17929 TAKING VENTOLIN HFA 108 (90 BASE) MCG/ACT AEROSOL SOLUTION 2 PUFFS NEEDED INHALATION FOUR TIMES DAILY NEEDED, NOTES: NONE LATELY TAKING BACLOFEN 10 MG TABLET 1 TABLET WITH FOOD OR MILK ORALLY BID, NOTES: 02/17/172329 MEDICATION LIST REVIEWED AND RECONCILED WITH THE PATIENT PAST MEDICAL HISTORY ESSENTIAL HYPERTENSION LUMBAR SPONDYLOSIS CREVICAL SPONDLOSIS DIABETES OBESITY INFLAMMATORY AND TOXIC NEUROPATHY DIFFICULTY BREATHING/WHEEZING SOLITARY NODULE OF LEFT LUNG CHF ALLERGIES LISINOPRIL: INCREASED SOB: ALLERGY LIPITOR: SOB, SEVERE BONE PAIN: ALLERGY SEASONAL: WATERY EYES, SNEEZING, RUNNY NOSE: ALLERGY SURGICAL HISTORY BILATERAL CATARACT REMOVAL 2013 HYSTERECTOMY 1994 APPENDECTOMY 1970 TUBAL LIGATION 1981 SOCIAL HISTORY GENERAL: TOBACCO USE ARE YOU A:CURRENT SMOKER HOW OFTEN DO YOU SMOKE CIGARETTES?EVERY DAY HOW SOON AFTER YOU WAKE UP DO YOU SMOKE YOUR FIRST CIGARETTE?6-30 MIN HOW MANY CIGARETTES A DAY DO YOU SMOKE?6-10 ARE YOU INTERESTED IN QUITTING?NOT READY TO QUIT PATIENT COUNSELED ON THE DANGERS OF TOBACCO USE AND URGED TO QUIT:01/05/2017 HAS RICHARD BUT ISN'T READY TO START NOW COUNSELED THE PATIENT ON SMOKING EFFECTS, EDUCATION [id number]/08/2017 ALCOHOL SCREENING DID YOU HAVE A DRINK CONTAINING ALCOHOL IN THE PAST YEAR?NO POINTS0 INTERPRETATIONNEGATIVE RECREATIONAL DRUG USE DRUG USE?NO CAFFEINE CAFFEINE USE?YES HOW OFTEN AND HOW MUCH? 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 DIET: CARBOHYDRATE CONTROLLED. EXERCISE: NO REGULAR EXERCISE. MARITAL STATUS: .. OTHERS AT HOME: S.O.,SON, SON'S GIRLFRIEND. PETS: NONE. JAINISM [id number] NONE LANGUAGE LANGUAGES SPOKEN:PASHTO EDUCATION LEVEL OF EDUCATION:HIGH SCHOOL LEARNING BARRIERS / SPECIAL NEEDS BARRIERS TO LEARNING?NO HEARING IMPAIRED?NO VISION IMPAIRED?YES COGNITIVELY IMPAIRED?NO :CORRECTIVE LENSES READINESS TO LEARN?YES LEARNING PREFERENCES?YES :BOOKLETS, HANDOUTS, DEMONSTRATION/VERBAL INSTRUCTION LEARNING CAPABILITIES PRESENT?NO EMOTIONAL BARRIERS?NO SPECIAL DEVICES?NO SUPERVISOR TUMBLERS NEEDED?NO PAIN CLINIC PFS, CLERGY, PUBLIC HEALTH REFERRALS PFS REFERRAL NEEDED?NO CLERGY REFERRAL NEEDED?NO PUBLIC HEALTH REFERRAL NEEDED?NO WAS THE PROVIDER NOTIFIED OF ANY PERTINENT INFO?NO HAS THE PATIENT BEEN EDUCATED REGARDING HIS/HER PLAN OF CARE?YES PLEASE DOCUMENT ANY ADDTIONAL DETAILS. ORIENTATION TO PAIN CENTER AND PLAN OF CARE PROVIDED AND PT. VERBALIZED UNDERSTANDING. HAS THE PATIENT BEEN EDUCATED REGARDING PAIN, THE RISK FOR PAIN, THE IMPORTANCE OF EFFECTIVE PAIN MANAGEMENT, AND THE PAIN ASSESSMENT PROCESS?YES PATIENT: ____. ADVANCE DIRECTIVES HEALTH CARE PROXY?NO WOULD YOU LIKE MORE INFORMATION?YES GIVEN POWER OF MOTHER HELPER?NO DO YOU HAVE A DNR?NO WOULD YOU LIKE MORE INFORMATION?NO LIVING WILL?NO WOULD YOU LIKE MORE INFORMATION?NO WOULD YOU LIKE MORE INFORMATION?NO HOSPITALIZATION/MAJOR DIAGNOSTIC PROCEDURE SURGERIES AND CHILDBIRTH [facility] 09/2016 REVIEW OF SYSTEMS REVIEWED BY: PROVIDER: . CONSTITUTIONAL: ANY CHANGE IN YOUR MEDICAL CONDITION? NO . CHILLS NO . FEVER NO . INFECTION: DO YOU HAVE NEW INFECTIONS? NO . DO YOU HAVE HISTORY OF MRSA? NO . MUSCULOSKELETAL: ANY NEW PATTERNS OF PAIN OR NUMBNESS? NO . GASTROENTEROLOGY: ANY NEW CHANGE IN BOWEL CONTROL? NO . GENITOURINARY: ANY NEW CHANGE IN BLADDER CONTROL? NO . IS THERE A CHANCE YOU COULD BE ? NO . HEMATOLOGY/LYMPH: DO YOU TAKE ANY BLOOD THINNERS? (FOR EXAMPLE- COUMADIN, PLAVIX, AGGRENOX, PLATEL, PRADAXA, OR XARELTO) NO . WHEN WAS YOUR LAST DOSE? DATE: TIME: . NEUROLOGY: HAVE YOU FALLEN IN THE PAST 6 MONTHS? NO . ANY NEW EXTREMITY NUMBNESS OR WEAKNESS? NO . CARDIOLOGY: DO YOU HAVE A PACEMAKER OR DEFIBRILLATOR? NO . RESPIRATORY: HAVE YOU BEEN SICK IN THE PAST WEEK? NO . FEVER NO . FLU LIKE SYMPTOMS? NO . COUGH NO . INTEGUMENTARY: DO YOU HAVE ANY RASHES OR OPEN SORES? NO . ALLERGIC/IMMUNO: ARE YOU ALLERGIC TO SHELLFISH OR IV DYE? NO . ANY NEW ALLERGIES? NO . PSYCHIATRIC: DO YOU HAVE THOUGHTS OF HURTING YOURSELF OR SOMEONE ELSE? NO . ARE YOU ABUSED, NEGLECTED, OR IN AN UNSAFE ENVIRONMENT? NO . ENDOCRINOLOGY: ARE YOU DIABETIC? YES . OTHER: DO YOU NEED ANY PRESCRIPTIONS? NO . IF YES, PLEASE LIST: ____ . ANY NEW PROBLEMS WITH YOUR MEDICATIONS? NO . WHEN DID YOU LAST EAT? 02/17/17 1800 . WHEN DID YOU LAST DRINK? 02/18/17 0930 . WHAT DID YOU LAST DRINK? WATER . NAME OF PERSON DRIVING YOU HOME? MAXIMO GARCIA . DO YOU HAVE ANY OTHER QUESTIONS OR CONCERNS NO . VITAL SIGNS WT 149 LBS, HT 51 IN, BMI 40.27 INDEX, BP 131/74 MM HG, HR 63 /MIN, RR 18 /MIN, TEMP 96.7 F, OXYGEN SAT % 98%, NA INITIALS SC 13:05, REVIEWED BY: KEL. ASSESSMENTS INTERVERTEBRAL DISC DISORDER WITH RADICULOPATHY OF LUMBAR REGION - M51.16 (PRIMARY) PROCEDURES PRE PROCEDURE DIAGNOSIS LUMBAR DISC DISORDER WITH RADICULOPATHY POST PROCEDURE DIAGNOSIS LUMBAR DISC DISORDER WITH RADICULOPATHY PROCEDURE LUMBAR EPIDURAL STEROID INJECTION UNDER FLUOROSCOPIC GUIDANCE SURGEON DR. SERGIO OCAMPO ALUM PLANT SUPERVISOR NONE ANESTHESIA LOCAL PRE PROCEDURE NOTE THE PATIENT HAS A HISTORY OF CHRONIC LOW BACK PAIN. I EVALUATE THE PATIENT AND REVIEWED THE CHART. I WENT OVER THE RISKS, ALTERNATIVES, AND BENEFITS ASSOCIATED WITH THIS PROCEDURE. THE PATIENT WOULD LIKE TO PROCEED AND GIVE CONSENT TO PERFORMED THE PROCEDURE. THE PATIENT DENIES UNEXPLAINABLE WEIGHT LOSS, FEVER, CHILLS, OR NEW CHANGES IN URINARY OR BOWEL CONTROL. DESCRIPTION OF PROCEDURE THE PATIENT WAS BROUGHT TO THE PROCEDURE ROOM AND PLACED IN THE PRONE POSITION. THE LUMBOSACRAL AREA WAS CLEANED WITH BETADINE SOLUTION AND DRAPED ASEPTICALLY. THE PROCEDURE WAS DONE UNDER STERILE CONDITIONS. I CHECKED LATERALITY AND THE LEVEL WHERE THE PROCEDURE WAS GOING TO BE PERFORMED WITH THE PATIENT AND THE SUPPORTING STAFF AT THE MOMENT OF THE TIME OUT IN THE PROCEDURE ROOM. UNDER FLUOROSCOPIC GUIDANCE, THE TARGET POINT WAS SELECTED AT THE INTERLAMINAR LEVEL OF L4-L5. LIDOCAINE WAS USED TO NUMB THE SKIN AND THE SUBCUTANEOUS TISSUE BELOW IT. EPIDURAL TUOHY NEEDLE, 17-GAUGE, WAS ADVANCED UNDER FLUOROSCOPIC GUIDANCE AND FOLLOWING PATIENT FEEDBACK UNTIL THE EPIDURAL SPACE WAS REACHED, 7 CM DEEP INTO THE SKIN BY THE LOSS OF RESISTANCE TECHNIQUE. ISOVUE M DYE 30%, 0.25 ML, WAS INJECTED SHOWING ADEQUATE SPREAD OF THE DYE. THEN, A SOLUTION OF 3 ML OF NORMAL SALINE WITH DEPO-MEDROL 60 MG WAS INJECTED SLOWLY FOLLOWING PATIENT FEEDBACK. THERE WAS NO EVIDENCE OF BLOOD, PARESTHESIA OR CEREBROSPINAL FLUID DURING THE PROCEDURE. THE PATIENT WAS SENT TO THE RECOVERY ROOM. THE PATIENT WAS MOVING THE EXTREMITIES AND DOING WELL. THERE WAS NO COMPLICATION DURING THE PROCEDURE. FLUOROSCOPY TIME WAS 9 SECONDS. POST PROCEDURE NOTE THE PATIENT WILL BE SEEN IN A FOLLOW UP IN THE NEXT FEW WEEKS. INSTRUCTIONS WERE GIVEN, QUESTIONS WERE ANSWERED, AND THE PATIENT EXPRESSED UNDERSTANDING AND AGREES WITH THE PLAN. I, MAGGIE PARMAR, DOCUMENTED THE ABOVE INFORMATION ACTING A SCRIBE FOR DR. OCAMPO. I, DR. OCAMPO, HAVE REVIEWED THE ABOVE DOCUMENT, SCRIBED BY MAGGIE PARMAR, AND I VERIFY THAT IT IS ACCURATE DIAGNOSTIC IMAGING [facility] FLUORO GUIDE SPINE INJECTION (PAIN)[id number] PROCEDURE CODES 00057 LUMBAR/SACRAL W/ IMAGING 6045F RADXPS IN END [id number] PXD DISPOSITION & COMMUNICATION FOLLOW UP 3 WEEKS ELECTRONICALLY SIGNED BY SERGIO OCAMPO MD ON 02/19/2017 AT 03:42 PM EDT DISCLAIMER : THIS IS A VISIT SUMMARY EXTRACTED FROM THE [employer] CHART. IT IS NOT A COPY OF THE [employer] PROGRESS NOTE. BRIAN
== END ==
LOC: M PAIN 12:30
PROVIDERS: ATTEND Anesthesiology
DX: G89.29 Other chronic pain (principal); M51.16 Intervertebral disc disorders with radiculopathy, lumbar region; I10 Essential (primary) hypertension; E11.9 Type 2 diabetes mellitus without complications; E66.9 Obesity, unspecified; Z68.41 Body mass index [BMI] 40.0-44.9, adult; J30.2 Other seasonal allergic rhinitis; Z88.8 Allergy status to other drugs, medicaments and biological substances; Z79.84 Long term (current) use of oral hypoglycemic drugs; Z79.899 Other long term (current) drug therapy
CPT/HCPCS: 62323; J1030; Q9967

== ENCOUNTER → 2017-03-25 | Outpatient (CLI) | payer OTHER ==
[~2017-03-25] MED LIST changes: -ISOVUE-M 300 61% 15ML VIAL (Q9967) As Ordered ONE; -LIDOCAINE 1% SDV INJ 30 ML VIAL As Ordered ONE; -diazePAM 5 MG TAB As Ordered ONE; -methylPREDNISolone SUSP 40 MG/ML (DEPO-medrol) VIAL (J1030) As Ordered ONE; -oxyCODONE 5MG TAB As Ordered ONE
--- NOTE | 2017-04-26 00:37 | ECWPNPC ---
PATIENT NAME: ERIN ALVAREZ : 1950 GENDER: FEMALE VISIT DATE: 03/25/2017 DISCHARGE DATE: 03/25/17 1607 VISIT LOCKED DATE TIME: PHYSICIAN: BARBARA HERNANDEZ RESOURCE: BARBARA HERNANDEZ REASON FOR APPOINTMENT 1. BACK/LEG PAIN HISTORY OF PRESENT ILLNESS HISTORY OF PRESENT ILLNESS: PAIN THE PATIENT DESCRIBES THE PAIN... FALL RISK SCREENING: SCREENING :NO FALLS IN THE PAST YEAR TODAY'S VISIT: NOTES: S/P LESB COMPLETED ON 02/25/17. PAIN LEVEL PRIOR WAS 8/10. RATES PAIN TODAY 0/10 AND NOTES ONLY SOME TIGHTNING. TO HAVE INJECTION AT LEFT HIP WITH DR Juan Francisco SANDOVAL. IS NO LONGER HAVING PAIN RADIATING DOWN LEG - IS HAVING PAIN IN THE LEFT GROIN. . CURRENT MEDICATIONS TAKING GLYBURIDE 5 MG TABLET 1 TABLET ORALLY BID TAKING METOPROLOL TARTRATE 50 MG TABLET 1 TABLET WITH FOOD ORALLY TWICE A DAY TAKING LOSARTAN POTASSIUM 100 MG TABLET 1 TABLET ORALLY ONCE A DAY TAKING SIMVASTATIN 10 MG TABLET 1 TABLET IN THE EVENING ORALLY ONCE A DAY TAKING CITALOPRAM HYDROBROMIDE 40 MG TABLET 1 TAB ORALLY ONCE A DAY TAKING METFORMIN HCL 500 MG TABLET 1 TABLET WITH MEALS ORALLY TWICE A DAY TAKING VITAMIN D 08265 U TABLET 1 TAB ORALLY WEEKLY TAKING SPIRONOLACTONE 50 MG TABLET 1 TABLET ORALLY ONCE A DAY TAKING ASA 81 MGS TAB ORAL DAILY TAKING FUROSEMIDE 40 MG TABLET 1 OR 2 TABS ORALLY ONCE A DAY TAKES ONE TAB ONE DAY AND TWO TABS THE NEXT DAY TAKING FISH OIL 1000 MG CAPSULE 1 CAPSULE ORALLY ONCE A DAY TAKING VENTOLIN HFA 108 (90 BASE) MCG/ACT AEROSOL SOLUTION 2 PUFFS NEEDED INHALATION FOUR TIMES DAILY NEEDED TAKING BACLOFEN 10 MG TABLET 1 TABLET WITH FOOD OR MILK ORALLY BID MEDICATION LIST REVIEWED AND RECONCILED WITH THE PATIENT PAST MEDICAL HISTORY ESSENTIAL HYPERTENSION LUMBAR SPONDYLOSIS CREVICAL SPONDLOSIS DIABETES OBESITY INFLAMMATORY AND TOXIC NEUROPATHY DIFFICULTY BREATHING/WHEEZING SOLITARY NODULE OF LEFT LUNG CHF ALLERGIES LISINOPRIL: INCREASED SOB: ALLERGY LIPITOR: SOB, SEVERE BONE PAIN: ALLERGY SEASONAL: WATERY EYES, SNEEZING, RUNNY NOSE: ALLERGY SOCIAL HISTORY GENERAL: TOBACCO USE ARE YOU A:CURRENT SMOKER HOW OFTEN DO YOU SMOKE CIGARETTES?EVERY DAY HOW SOON AFTER YOU WAKE UP DO YOU SMOKE YOUR FIRST CIGARETTE?6-30 MIN HOW MANY CIGARETTES A DAY DO YOU SMOKE?6-10 ARE YOU INTERESTED IN QUITTING?NOT READY TO QUIT PATIENT COUNSELED ON THE DANGERS OF TOBACCO USE AND URGED TO QUIT:01/05/2017 HAS RICHARD BUT ISN'T READY TO START NOW COUNSELED THE PATIENT ON SMOKING EFFECTS, EDUCATION [id number]/08/2017 ALCOHOL SCREENING DID YOU HAVE A DRINK CONTAINING ALCOHOL IN THE PAST YEAR?NO POINTS0 INTERPRETATIONNEGATIVE RECREATIONAL DRUG USE DRUG USE?NO CAFFEINE CAFFEINE USE?YES HOW OFTEN AND HOW MUCH? 2 CUPS COFFEE/DAY OCCUPATION: UNEMPLOYED, VOLUNTEER PHYSICIAN. DIET: CARBOHYDRATE CONTROLLED. EXERCISE: NO REGULAR EXERCISE. MARITAL STATUS: .. OTHERS AT HOME: S.O.,SON, SON'S GIRLFRIEND. PETS: NONE. CAODAISM [id number] NONE LANGUAGE LANGUAGES SPOKEN:NEPALI EDUCATION LEVEL OF EDUCATION:HIGH SCHOOL LEARNING BARRIERS / SPECIAL NEEDS CHANGE FROM LAST VISIT?NO BARRIERS TO LEARNING?NO HEARING IMPAIRED?NO VISION IMPAIRED?YES :CORRECTIVE LENSES COGNITIVELY IMPAIRED?NO READINESS TO LEARN?YES LEARNING PREFERENCES?YES :BOOKLETS, HANDOUTS, DEMONSTRATION/VERBAL INSTRUCTION LEARNING CAPABILITIES PRESENT?NO EMOTIONAL BARRIERS?NO SPECIAL DEVICES?NO QUALITY ASSURANCE NEEDED?NO PAIN CLINIC PFS, CLERGY, PUBLIC HEALTH REFERRALS PFS REFERRAL NEEDED?NO CLERGY REFERRAL NEEDED?NO PUBLIC HEALTH REFERRAL NEEDED?NO WAS THE PROVIDER NOTIFIED OF ANY PERTINENT INFO?NO HAS THE PATIENT BEEN EDUCATED REGARDING HIS/HER PLAN OF CARE?YES PLEASE DOCUMENT ANY ADDTIONAL DETAILS. ORIENTATION TO PAIN CENTER AND PLAN OF CARE PROVIDED AND PT. VERBALIZED UNDERSTANDING. HAS THE PATIENT BEEN EDUCATED REGARDING PAIN, THE RISK FOR PAIN, THE IMPORTANCE OF EFFECTIVE PAIN MANAGEMENT, AND THE PAIN ASSESSMENT PROCESS?YES PATIENT: ____. ADVANCE DIRECTIVES HEALTH CARE PROXY?NO WOULD YOU LIKE MORE INFORMATION?YES GIVEN DO YOU HAVE A DNR?NO WOULD YOU LIKE MORE INFORMATION?NO LIVING WILL?NO WOULD YOU LIKE MORE INFORMATION?NO POWER OF SOLAR SALES ENERGY ADVISOR?NO WOULD YOU LIKE MORE INFORMATION?NO REVIEW OF SYSTEMS REVIEWED BY: PROVIDER: BARBARA BRISCOE . CONSTITUTIONAL: ANY CHANGE IN YOUR MEDICAL CONDITION? NO . CHILLS NO . FEVER NO . INFECTION: DO YOU HAVE NEW INFECTIONS? NO . DO YOU HAVE HISTORY OF MRSA? NO . MUSCULOSKELETAL: ANY NEW PATTERNS OF PAIN OR NUMBNESS? NO . GASTROENTEROLOGY: ANY NEW CHANGE IN BOWEL CONTROL? NO . GENITOURINARY: ANY NEW CHANGE IN BLADDER CONTROL? NO . IS THERE A CHANCE YOU COULD BE ? NO . HEMATOLOGY/LYMPH: DO YOU TAKE ANY BLOOD THINNERS? (FOR EXAMPLE- COUMADIN, PLAVIX, AGGRENOX, PLATEL, PRADAXA, OR XARELTO) NO . WHEN WAS YOUR LAST DOSE? DATE: TIME: . NEUROLOGY: HAVE YOU FALLEN IN THE PAST 6 MONTHS? NO . ANY NEW EXTREMITY NUMBNESS OR WEAKNESS? NO . CARDIOLOGY: DO YOU HAVE A PACEMAKER OR DEFIBRILLATOR? NO . RESPIRATORY: HAVE YOU BEEN SICK IN THE PAST WEEK? NO . FEVER NO . FLU LIKE SYMPTOMS? NO . COUGH NO . INTEGUMENTARY: DO YOU HAVE ANY RASHES OR OPEN SORES? NO . ALLERGIC/IMMUNO: ARE YOU ALLERGIC TO SHELLFISH OR IV DYE? NO . ANY NEW ALLERGIES? NO . PSYCHIATRIC: DO YOU HAVE THOUGHTS OF HURTING YOURSELF OR SOMEONE ELSE? NO . ARE YOU ABUSED, NEGLECTED, OR IN AN UNSAFE ENVIRONMENT? NO . ENDOCRINOLOGY: ARE YOU DIABETIC? YES . OTHER: DO YOU NEED ANY PRESCRIPTIONS? NO . IF YES, PLEASE LIST: ____ . ANY NEW PROBLEMS WITH YOUR MEDICATIONS? NO . WHEN DID YOU LAST EAT? ____ . WHEN DID YOU LAST DRINK? ____ . WHAT DID YOU LAST DRINK? ____ . NAME OF PERSON DRIVING YOU HOME? ____ . DO YOU HAVE ANY OTHER QUESTIONS OR CONCERNS NO . VITAL SIGNS WT 143 LBS, HT 51 IN, BMI 38.65 INDEX, BP 126/63 MM HG, HR 69 /MIN, RR 18 /MIN, TEMP 98.0 F, OXYGEN SAT % 92%, NA INITIALS SC 15:51, REVIEWED BY: RAHEEM. EXAMINATION GENERAL EXAMINATION: PSYCHALERT , ORIENTED X 3 , APPROPRIATE MOOD AND AFFECT . LUNGS:CLEAR TO AUSCULTATION BILATERALLY, NO WHEEZES , RALES AND RHONCHI. HEART:HEART TONES DISTANT, REGULAR. MUSCULOSKELETAL:MILD TENDERNESS OVER LUMBAR SPINOUS PROCESSES AND OVER LEFT SACRUM. NO SPECIFIC TENDERNESS OVER OVER LEFT SIJ. LEFT QUAD WEAKNESS NOTED. POSTURE UPRIGHT. GAIT NONANTALGIC. EXTREMITIES:NO EDEMA. 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 PROCEDURE CODES FA211 ESTABILISHED PATIENT [facility] FACILITY CHARGE DISPOSITION & COMMUNICATION FOLLOW UP MAY (REASON: BACK PAIN) ELECTRONICALLY SIGNED BY TREVOR MORENO ON 04/25/2017 AT 11:42 AM EST DISCLAIMER : THIS IS A VISIT SUMMARY EXTRACTED FROM THE [employer] CHART. IT IS NOT A COPY OF THE [employer] PROGRESS NOTE. BRIAN
== END ==
LOC: M PAIN 14:45
PROVIDERS: ATTEND Nurse Practitioner Family
DX: M51.16 Intervertebral disc disorders with radiculopathy, lumbar region (principal); M79.1 Myalgia; M51.17 Intervertebral disc disorders with radiculopathy, lumbosacral region; M47.816 Spondylosis without myelopathy or radiculopathy, lumbar region; M47.817 Spondylosis without myelopathy or radiculopathy, lumbosacral region; I11.0 Hypertensive heart disease with heart failure; I50.9 Heart failure, unspecified; E11.9 Type 2 diabetes mellitus without complications; Z79.82 Long term (current) use of aspirin; Z79.84 Long term (current) use of oral hypoglycemic drugs; Z79.899 Other long term (current) drug therapy; Z88.8 Allergy status to other drugs, medicaments and biological substances; J30.2 Other seasonal allergic rhinitis

== ENCOUNTER → 2017-06-25 | Outpatient (CLI) | payer OTHER | LOC: M PAIN 10:30 | DX: M51.16 Intervertebral disc disorders with radiculopathy, lumbar region (principal); M79.1 Myalgia; M51.17 Intervertebral disc disorders with radiculopathy, lumbosacral region; E11.9 Type 2 diabetes mellitus without complications; I10 Essential (primary) hypertension; Z79.4 Long term (current) use of insulin; Z79.899 Other long term (current) drug therapy; Z88.8 Allergy status to other drugs, medicaments and biological substances; J30.2 Other seasonal allergic rhinitis | CPT/HCPCS: G0463 ==

== ENCOUNTER → 2017-08-19 | Outpatient (CLI) | payer MEDICARE, MEDICAID ==
[~2017-08-19] MED LIST changes: -ALBU17IN INH; -ASPI1TAB PO; -CITA40TA4 PO; -DRIS50002 PO; -FISH1000 PO; -FURO20TA2 PO; -GLYB5TA PO; -ISOS30TA4 PO; +ISOVUE-M 300 61% 15ML VIAL (Q9967) As Ordered; +LIDOCAINE 1% SDV INJ 30 ML VIAL As Ordered; -LOSA50TA20 PO; -METF-414 PO; -METF500T4 PO; -METO50TA7 PO; -SIMV20TA2 PO; -VITA1CAP40 PO; +methylPREDNISolone SUSP 40 MG/ML (DEPO-medrol) VIAL (J1030) As Ordered
== END ==
LOC: M PAIN 08:30
DX: G89.29 Other chronic pain (principal); M51.16 Intervertebral disc disorders with radiculopathy, lumbar region; I11.0 Hypertensive heart disease with heart failure; E11.9 Type 2 diabetes mellitus without complications; I50.9 Heart failure, unspecified; F17.210 Nicotine dependence, cigarettes, uncomplicated; Z79.82 Long term (current) use of aspirin; Z79.84 Long term (current) use of oral hypoglycemic drugs; Z79.899 Other long term (current) drug therapy; Z88.8 Allergy status to other drugs, medicaments and biological substances
CPT/HCPCS: J1030

== ENCOUNTER → 2017-09-29 | Outpatient (CLI) | payer MEDICARE, MEDICAID | LOC: M PAIN 14:15 | DX: M51.16 Intervertebral disc disorders with radiculopathy, lumbar region (principal); M79.1 Myalgia; M51.17 Intervertebral disc disorders with radiculopathy, lumbosacral region; I10 Essential (primary) hypertension; E11.9 Type 2 diabetes mellitus without complications; J30.2 Other seasonal allergic rhinitis; E66.01 Morbid (severe) obesity due to excess calories; Z68.39 Body mass index [BMI] 39.0-39.9, adult; Z79.899 Other long term (current) drug therapy; Z88.8 Allergy status to other drugs, medicaments and biological substances; Z86.79 Personal history of other diseases of the circulatory system | CPT/HCPCS: G0463 ==

== ENCOUNTER → 2017-12-08 | Outpatient (CLI) | payer MEDICARE, MEDICAID | LOC: M RAD 13:00 | DX: M47.892 Other spondylosis, cervical region (principal); M47.896 Other spondylosis, lumbar region; M50.321 Other cervical disc degeneration at C4-C5 level; M50.323 Other cervical disc degeneration at C6-C7 level; M51.36 Other intervertebral disc degeneration, lumbar region | CPT/HCPCS: 72114 ==

== ENCOUNTER 2017-12-13 06:39 | Inpatient (IN) | payer MEDICARE, MEDICAID ==
[2017-12-13 07:34] LABS: GLUCOSE, FASTING 125 MG/DL (70-100)
[2017-12-13] MEDS: LR 1,000 ML IV ×4 (08:10→10:45)
[2017-12-13] MEDS: TRANEXAMIC ACID 100 MG/ML 10ML VIAL As Ordered (09:33)
[2017-12-13] MEDS: ceFAZolin 1GM INJ (J0690 PER 500MG) As Ordered (09:33)
[2017-12-13] MEDS: EPINEPHrine INJ 1 MG/ML 1ML AMP As Ordered (09:34)
[2017-12-13] MEDS ORDERED: MIDAZOLAM INJ 2 MG/2 ML VIAL (J2250) As Ordered (09:43)
[2017-12-13] MEDS ORDERED: fentaNYL 100 MCG/2 ML INJECTION (J3010) As Ordered (09:43)
[2017-12-13] MEDS ORDERED: BUPIVACAINE/DEXTROSE 0.75% 2 ML AMP As Ordered (09:43)
[2017-12-13] MEDS ORDERED: ONDANSETRON 4MG/2ML VIAL (J2405) As Ordered (09:43)
[2017-12-13] MEDS ORDERED: PROPOFOL 200 MG/20 ML VIAL As Ordered (09:44)
[2017-12-13] MEDS ORDERED: PHENYLephrine HCL 500 MCG/5 ML (100MCG/ML) SYRINGE (J2370) As Ordered (10:01)
[2017-12-13] MEDS ORDERED: ePHEDrine SULFATE 25 MG/5 ML(5MG/ML) SYRINGE As Ordered (10:02)
[2017-12-13] MEDS ORDERED: ONDANSETRON 4MG/2ML VIAL (J2405) IV ×2 (10:45→11:00)
[2017-12-13] MEDS ORDERED: ACETAMINOPHEN TAB 650MG DOSE (2X325MG) PO (10:45)
[2017-12-13] MEDS ORDERED: FLEET ENEMA PR (10:45)
[2017-12-13] MEDS ORDERED: diphenhydrAMINE INJ 50MG/ML VIAL (J1200) IV (11:00)
[2017-12-13] MEDS ORDERED: EPIDURAL/PCA KEYS XX (11:00)
[2017-12-13] MEDS ORDERED: PERCOCET 5MG/325MG TAB PO (11:00)
[2017-12-13] MEDS ORDERED: NALBUPHINE HCL 10 MG/ML AMP (J2300) IV (11:00)
[2017-12-13] MEDS ORDERED: fentaNYL 100 MCG/2 ML INJECTION (J3010) IV (11:00)
[2017-12-13] MEDS ORDERED: NALOXONE INJ 0.4 MG/1 ML VIAL (J2310) IV (11:00)
[2017-12-13] MEDS: MORPHINE 1MG/ML IN 0.9% NACL 100ML IV BAG IV (11:20)
[2017-12-13 16:40] LABS: BEDSIDE GLUCOSE 96 MG/DL (80-115)
[2017-12-13] MEDS ORDERED: ALBUTEROL 90 MCG/ACT 8GM HFA INHALER INH (17:30)
[2017-12-13] MEDS ORDERED: DEXTROSE 50% 50 ML SYRINGE IV (18:30)
[2017-12-13] MEDS ORDERED: GLUCAGON FOR INJ 1 MG VIAL (J1610) SC (18:30)
[2017-12-13] MEDS ORDERED: GLUCOSE 4 GM CHEW TABLET PO (18:30)
[2017-12-13 22:14] LABS: BEDSIDE GLUCOSE 264 MG/DL (80-115)
[2017-12-13] MEDS: metFORMIN XR 500MG TAB *GLUCOPHAGE XR PO (22:49)
[2017-12-13] MEDS: METOPROLOL TART 50 MG TAB PO (22:49)
[2017-12-13] MEDS: HumaLOG INSULIN (NovoLOG) PER UNIT SC (22:50)
[2017-12-14] MEDS: LR 1,000 ML IV (02:31)
[2017-12-14] MEDS ORDERED: PERCOCET 5MG/325MG TAB PO (06:45)
[2017-12-14 06:57] LABS: BASO % 0.2 % (0.0-1.0); EOS # 0.1 10^3/uL (0.0-0.50); EOS % 0.9 % (0.0-3.0); HEMATOCRIT 35.5 % (36.0-47.0); HEMOGLOBIN 12.1 g/dl (12.0-15.5); IMMATURE GRANULOCYTE % 0.3 % (0-3.0); LYMPH # 1.7 10^3/uL (1.5-4.5); LYMPH % 19.9 % (24.0-44.0); MEAN CORPUSCULAR HEMOGLOBIN 33.1 pg (27.0-33.0); MEAN CORPUSCULAR HGB CONC 34.1 g/dl (32.0-36.5); MONO # 0.9 10^3/uL (0.0-0.8); MONO % 10.4 % (0.0-5.0); NEUTROPHILS # 5.9 10^3/uL (1.8-7.7); NEUTROPHILS % 68.3 % (36.0-66.0); PLATELET COUNT, AUTOMATED 203 10^3/uL (150-450); RED BLOOD COUNT 3.66 10^6/uL (4.00-5.40); RED CELL DISTRIBUTION WIDTH 12.6 % (11.5-14.5); WHITE BLOOD COUNT 8.6 10^3/uL (4.0-10.0)
[2017-12-14] MEDS: ONDANSETRON 4 MG TAB (S0181) PO ×2 (07:08→08:29)
[2017-12-14 07:10] LABS: ESTIMATED AVERAGE GLUCOSE 171 MG/DL (60-110); HEMOGLOBIN A1c 7.6 %
[2017-12-14 07:23] LABS: ANION GAP 9 MEQ/L (8-16); BLOOD UREA NITROGEN 15 MG/DL (7-18); CALCIUM LEVEL 8.6 MG/DL (8.8-10.2); CARBON DIOXIDE LEVEL 29 MEQ/L (21-32); CHLORIDE LEVEL 102 MEQ/L (98-107); CHOLESTEROL LEVEL 120 MG/DL (<200); CHOLESTEROL RISK RATIO 3.076 (<5); CREATININE FOR GFR 0.83 MG/DL (0.55-1.30); GLOMERULAR FILTRATION RATE > 60.0 (>45); GLUCOSE, FASTING 106 MG/DL (70-100); HDL CHOLESTEROL 39 MG/DL (>40); LDL CHOLESTEROL 49.6 MG/DL (<100); MAGNESIUM LEVEL 1.5 MG/DL (1.8-2.4); NON-HDL-C 81 MG/DL; SODIUM LEVEL 140 MEQ/L (136-145); TRIGLYCERIDES LEVEL 157 MG/DL (<150)
[2017-12-14] MEDS: CitaloPRAM (CeleXA) 20 MG TAB PO (08:29)
[2017-12-14] MEDS: SENOKOT S TAB PO ×2 (08:29→20:45)
[2017-12-14] MEDS: MOM 30ML SUSPENSION UDC PO (08:29)
[2017-12-14] MEDS: ASPIRIN 81 MG ENTERIC TAB PO (08:29)
[2017-12-14] MEDS: RIVAROXABAN 10 MG TAB (XARELTO) PO (08:29)
[2017-12-14] MEDS: MIRALAX *UNIT DOSE* 17GM PACKET PO (08:29)
[2017-12-14] MEDS: SIMVASTATIN 10 MG TAB PO (08:30)
[2017-12-14] MEDS: HumaLOG INSULIN (NovoLOG) PER UNIT SC ×4 (08:30→20:46)
[2017-12-14] MEDS: METOPROLOL TART 50 MG TAB PO ×2 (09:00→20:46)
[2017-12-14] MEDS: metFORMIN XR 500MG TAB *GLUCOPHAGE XR PO ×2 (09:00→20:45)
[2017-12-14] MEDS: LOSARTAN 50 MG TAB PO (09:00)
[2017-12-14 12:23] LABS: BEDSIDE GLUCOSE 187 MG/DL (80-115)
[2017-12-14 14:28] LABS: PTH INTACT 58.8 PG/ML (18.5-88.0)
[2017-12-14] MEDS: PERCOCET 5MG/325MG TAB PO (15:09)
[2017-12-14 16:58] LABS: BEDSIDE GLUCOSE 186 MG/DL (80-115)
[2017-12-14 20:31] LABS: BEDSIDE GLUCOSE 145 MG/DL (80-115)
[2017-12-15] MEDS: PERCOCET 5MG/325MG TAB PO ×2 (06:32→13:21)
[2017-12-15 07:02] LABS: HEMATOCRIT 33.9 % (36.0-47.0); HEMOGLOBIN 11.6 g/dl (12.0-15.5); MEAN CORPUSCULAR HGB CONC 34.2 g/dl (32.0-36.5); MEAN CORPUSCULAR VOLUME 96.6 fl (80.0-96.0); PLATELET COUNT, AUTOMATED 205 10^3/uL (150-450); RED BLOOD COUNT 3.51 10^6/uL (4.00-5.40); RED CELL DISTRIBUTION WIDTH 12.5 % (11.5-14.5); WHITE BLOOD COUNT 10.5 10^3/uL (4.0-10.0)
[2017-12-15 07:05] LABS: ANION GAP 5 MEQ/L (8-16); BLOOD UREA NITROGEN 14 MG/DL (7-18); CALCIUM LEVEL 9.1 MG/DL (8.8-10.2); CARBON DIOXIDE LEVEL 32 MEQ/L (21-32); CHLORIDE LEVEL 100 MEQ/L (98-107); CREATININE FOR GFR 0.86 MG/DL (0.55-1.30); GLOMERULAR FILTRATION RATE > 60.0 (>45); GLUCOSE, FASTING 159 MG/DL (70-100); POTASSIUM SERUM 4.7 MEQ/L (3.5-5.1); SODIUM LEVEL 137 MEQ/L (136-145)
[2017-12-15] MEDS: HumaLOG INSULIN (NovoLOG) PER UNIT SC ×2 (08:15→12:35)
[2017-12-15] MEDS: SENOKOT S TAB PO (08:15)
[2017-12-15] MEDS: MOM 30ML SUSPENSION UDC PO (08:16)
[2017-12-15] MEDS: CitaloPRAM (CeleXA) 20 MG TAB PO (08:16)
[2017-12-15] MEDS: RIVAROXABAN 10 MG TAB (XARELTO) PO (08:16)
[2017-12-15] MEDS: SIMVASTATIN 10 MG TAB PO (08:17)
[2017-12-15] MEDS: MIRALAX *UNIT DOSE* 17GM PACKET PO (08:18)
[2017-12-15] MEDS: ASPIRIN 81 MG ENTERIC TAB PO (08:18)
[2017-12-15] MEDS: METOPROLOL TART 50 MG TAB PO (08:21)
[2017-12-15] MEDS: LOSARTAN 50 MG TAB PO (08:21)
[2017-12-15] MEDS: metFORMIN XR 500MG TAB *GLUCOPHAGE XR PO (08:21)
[2017-12-15 12:10] LABS: BEDSIDE GLUCOSE 170 MG/DL (80-115)
== END 2017-12-15 13:45 | disposition home or self-care (01) | DRG 470 ==
LOC: M OR 06:39 → M MS5PR 12:15
PROVIDERS: Orthopaedic Surgery
PROC: 0SRB04A Replacement of Left Hip Joint with Ceramic on Polyethylene Synthetic Substitute, Uncemented, Open Approach (ICD-10-PCS; principal; 2017-12-13 08:30)
DX: M16.12 Unilateral primary osteoarthritis, left hip (principal); I50.22 Chronic systolic (congestive) heart failure; I42.9 Cardiomyopathy, unspecified; E11.9 Type 2 diabetes mellitus without complications; I11.0 Hypertensive heart disease with heart failure; F32.9 Major depressive disorder, single episode, unspecified; Z79.899 Other long term (current) drug therapy; E78.5 Hyperlipidemia, unspecified; F17.200 Nicotine dependence, unspecified, uncomplicated; I44.7 Left bundle-branch block, unspecified

== ENCOUNTER → 2018-02-01 | Outpatient (CLI) | payer MEDICARE, MEDICAID | LOC: M RAD 06:51 | DX: R91.1 Solitary pulmonary nodule (principal) | CPT/HCPCS: 71250 ==

== ENCOUNTER → 2018-03-03 | Outpatient (CLI) | payer MEDICARE, MEDICAID | LOC: M PAIN 14:15 | DX: M79.10 Myalgia, unspecified site (principal); M51.17 Intervertebral disc disorders with radiculopathy, lumbosacral region; I10 Essential (primary) hypertension; E11.9 Type 2 diabetes mellitus without complications; F17.210 Nicotine dependence, cigarettes, uncomplicated; J30.2 Other seasonal allergic rhinitis; Z79.84 Long term (current) use of oral hypoglycemic drugs; Z79.899 Other long term (current) drug therapy; Z88.8 Allergy status to other drugs, medicaments and biological substances; Z86.79 Personal history of other diseases of the circulatory system | CPT/HCPCS: G0463 ==

== ENCOUNTER → 2018-03-21 | Outpatient (CLI) | payer MEDICARE, MEDICAID ==
[~2018-03-21] MED LIST changes: +BUPIVACAINE HCL 0.25% 30 ML VIAL As Ordered; -ISOVUE-M 300 61% 15ML VIAL (Q9967) As Ordered; -LIDOCAINE 1% SDV INJ 30 ML VIAL As Ordered; +TRIAMCINOLONE ACETONIDE SUSP 40 MG/ML VIAL (J3301) As Ordered; -methylPREDNISolone SUSP 40 MG/ML (DEPO-medrol) VIAL (J1030) As Ordered
[2018-03-21 11:42] LABS: BEDSIDE GLUCOSE 123 MG/DL (80-115)
== END ==
LOC: M PAIN 10:30
DX: M79.18 Myalgia, other site (principal); M54.5 Low back pain; I10 Essential (primary) hypertension; E11.9 Type 2 diabetes mellitus without complications; F17.210 Nicotine dependence, cigarettes, uncomplicated; J30.2 Other seasonal allergic rhinitis; Z79.84 Long term (current) use of oral hypoglycemic drugs; Z79.899 Other long term (current) drug therapy; Z88.8 Allergy status to other drugs, medicaments and biological substances; Z86.79 Personal history of other diseases of the circulatory system
CPT/HCPCS: J3301

== ENCOUNTER → 2018-04-08 | Outpatient (CLI) | payer MEDICARE, MEDICAID | LOC: M PAIN 10:15 | DX: M79.18 Myalgia, other site (principal); M51.17 Intervertebral disc disorders with radiculopathy, lumbosacral region; I11.0 Hypertensive heart disease with heart failure; M47.896 Other spondylosis, lumbar region; M47.892 Other spondylosis, cervical region; F17.210 Nicotine dependence, cigarettes, uncomplicated; E11.9 Type 2 diabetes mellitus without complications; E66.9 Obesity, unspecified; R91.1 Solitary pulmonary nodule; I50.9 Heart failure, unspecified; Z98.41 Cataract extraction status, right eye; Z98.42 Cataract extraction status, left eye; Z90.49 Acquired absence of other specified parts of digestive tract; Z79.84 Long term (current) use of oral hypoglycemic drugs; Z79.899 Other long term (current) drug therapy; Z68.41 Body mass index [BMI] 40.0-44.9, adult | CPT/HCPCS: G0463 ==

== ENCOUNTER 2018-04-18 05:37 | Day surgery (SDC) | payer MEDICARE, MEDICAID ==
[2018-04-18] MEDS: LR 1,000 ML IV (06:30)
[2018-04-18 06:32] LABS: BEDSIDE GLUCOSE 149 MG/DL (80-115)
[2018-04-18] MEDS ORDERED: MIDAZOLAM INJ 2 MG/2 ML VIAL (J2250) As Ordered ×2 (06:45→07:58)
[2018-04-18] MEDS ORDERED: fentaNYL 100 MCG/2 ML INJECTION (J3010) As Ordered (06:45)
[2018-04-18] MEDS: fentaNYL 100 MCG/2 ML INJECTION (J3010) IV (07:07)
[2018-04-18] MEDS: MIDAZOLAM INJ 2 MG/2 ML VIAL (J2250) IV (07:07)
[2018-04-18] MEDS ORDERED: ONDANSETRON 4MG/2ML VIAL (J2405) As Ordered (07:58)
[2018-04-18] MEDS ORDERED: fentaNYL 250 MCG/5 ML INJECTION (J3010) As Ordered (07:58)
[2018-04-18] MEDS ORDERED: METOCLOPRAMIDE INJ 10MG/2ML VIAL (J2765) As Ordered (07:58)
[2018-04-18] MEDS ORDERED: LIDOCAINE 2% INJ 100 MG/5 ML SDV (FOR ANES.) As Ordered (07:58)
[2018-04-18] MEDS ORDERED: ROCURONIUM BROMIDE 50 MG/5 ML VIAL As Ordered (07:59)
[2018-04-18] MEDS ORDERED: PROPOFOL 200 MG/20 ML VIAL As Ordered (07:59)
[2018-04-18] MEDS ORDERED: NEOSTIGMINE 10 MG/10 ML VIAL (J2710) As Ordered (08:22)
[2018-04-18] MEDS ORDERED: GLYCOPYRROLATE INJ 0.2 MG/ML 2 ML VIAL As Ordered ×2 (08:23)
[2018-04-18] MEDS ORDERED: ePHEDrine SULFATE 25 MG/5 ML(5MG/ML) SYRINGE As Ordered (08:26)
[2018-04-18] MEDS: EPINEPHrine 1MG/ML INJ 30ML MD-VIAL As Ordered (09:12)
[2018-04-18] MEDS ORDERED: fentaNYL 100 MCG/2 ML INJECTION (J3010) IV (11:15)
[2018-04-18] MEDS ORDERED: NORCO, ANEXSIA 5/325MG TABLET (HYDROcodone/ACETAMINOPHEN) PO (11:15)
[2018-04-18] MEDS ORDERED: LR 1,000 ML IV (11:15)
[2018-04-18] MEDS ORDERED: ONDANSETRON 4MG/2ML VIAL (J2405) IV (11:15)
[2018-04-18] MEDS: LIDOCAINE 1% MDV 20ML VIAL As Ordered (11:19)
== END 2018-04-18 15:31 | disposition home or self-care (01) ==
LOC: M SDC 05:37
DX: M75.121 Complete rotator cuff tear or rupture of right shoulder, not specified as traumatic (principal); M75.41 Impingement syndrome of right shoulder; S46.111A Strain of muscle, fascia and tendon of long head of biceps, right arm, initial encounter; S43.491A Other sprain of right shoulder joint, initial encounter; M94.211 Chondromalacia, right shoulder; M65.811 Other synovitis and tenosynovitis, right shoulder; I10 Essential (primary) hypertension; E11.9 Type 2 diabetes mellitus without complications; M15.0 Primary generalized (osteo)arthritis; I50.9 Heart failure, unspecified; E78.00 Pure hypercholesterolemia, unspecified; M54.5 Low back pain; Z88.8 Allergy status to other drugs, medicaments and biological substances; Z79.899 Other long term (current) drug therapy; Z79.84 Long term (current) use of oral hypoglycemic drugs; Z87.19 Personal history of other diseases of the digestive system; Z78.0 Asymptomatic menopausal state; Z90.710 Acquired absence of both cervix and uterus; Z96.649 Presence of unspecified artificial hip joint; Z72.0 Tobacco use; Z96.1 Presence of intraocular lens; Z98.41 Cataract extraction status, right eye; Z98.42 Cataract extraction status, left eye; X58.XXXA Exposure to other specified factors, initial encounter; Y93.89 Activity, other specified; Y92.89 Other specified places as the place of occurrence of the external cause; Y99.8 Other external cause status
CPT/HCPCS: 29827

== ENCOUNTER → 2018-05-04 | Outpatient (CLI) | payer MEDICARE, MEDICAID | LOC: M RAD 10:25 | DX: I25.10 Atherosclerotic heart disease of native coronary artery without angina pectoris (principal); I73.9 Peripheral vascular disease, unspecified | CPT/HCPCS: 93925 ==

== ENCOUNTER → 2018-06-16 | Outpatient (CLI) | payer MEDICARE, MEDICAID ==
[~2018-06-16] MED LIST changes: +ALBU17IN INH; +ASPI1TAB PO; -BUPIVACAINE HCL 0.25% 30 ML VIAL As Ordered; +CITA40TA4 PO; +DRIS50003 PO; +FISH1000 PO; +FURO20TA2 PO; +GLYB5TA PO; +ISOS30TA4 PO; +LOSA50TA88 PO; +METF-414 PO; +METF500T4 PO; +METO50TA7 PO; +PERC5TAB12 PO; +PROAAER10 INH; +SIMV10TA2 PO; +SIMV20TA2 PO; -TRIAMCINOLONE ACETONIDE SUSP 40 MG/ML VIAL (J3301) As Ordered; +VITA50005 PO; +VITA500C24 PO; +XARE10TA PO
--- NOTE | 2018-06-16 16:42 | REPMRS ---
Patient History The patient states she had a clinical breast exam in April 2018.Patient is postmenopausal. No known family history of cancer. Digital Mammo Screening Bilat: June 16, 2018 - Exam #: [id number] Bilateral CC and MLO view(s) were taken. Technologist: Jolynn Bowling, Technologist Prior study comparison: October 02, 2014, bilateral digital woman screen mammo, performed at [facility]. December 14, 2012, bilateral digital woman screen mammo, performed at [facility]. FINDINGS: There are scattered fibroglandular densities. There has been no change in the appearance of the mammogram from the prior studies. There is a mild amount of scattered fibroglandular density which is fairly symmetric. There is no interval development of dominant mass, architectural distortion, or clustered microcalcification suggestive of malignancy. 3-D tomosynthesis shows no additional findings. Assessment: BI-RADS/ACR category 1 mammogram. Negative. Recommendation Routine screening mammogram of both breasts in 1 year (for women over age 40). This patient's Lifetime Breast Cancer RIsk is estimated at 4.6 %. This mammogram was interpreted with the aid of an FDA-approved computer-aided dectection system. Electronically Signed By: Loi Khan MD 06/16/18 [id number]
== END ==
LOC: M RAD 13:07
PROVIDERS: ATTEND Physician Assistant
DX: Z12.31 Encounter for screening mammogram for malignant neoplasm of breast (principal); Z78.0 Asymptomatic menopausal state

== ENCOUNTER → 2018-08-24 | Outpatient (CLI) | payer MEDICARE, MEDICAID ==
--- NOTE | 2018-08-26 01:50 | ECWPNPC ---
PATIENT NAME: ERIN ALVAREZ : 1950 GENDER: FEMALE VISIT DATE: 08/24/2018 DISCHARGE DATE: 08/24/18 1358 VISIT LOCKED DATE TIME: PHYSICIAN: QUE FERREIRA RESOURCE: QUE FERREIRA REASON FOR APPOINTMENT 1. BACK PAIN-30 MIN SW HISTORY OF PRESENT ILLNESS HISTORY OF PRESENT ILLNESS: PAIN THE PATIENT DESCRIBES THE PAINDURING THE LAST MONTH SEVERITY - PAIN SCORE OF1/10 68YR OLD FEMALE HERE FOR F/U FOR CHRONIC LOWER BACK PAIN. SHE SAYS SHE HAS HAD VERY GOOD PAIN CONTROL FOLLOWING HER LAST PROCEDURE. FALL RISK SCREENING: SCREENING :NO FALLS REPORTED IN THE LAST YEAR CURRENT MEDICATIONS TAKING GLYBURIDE 5 MG TABLET 1 TABLET ORALLY BID TAKING METOPROLOL TARTRATE 50 MG TABLET 1 TABLET WITH FOOD ORALLY TWICE A DAY TAKING LOSARTAN POTASSIUM 100 MG TABLET 1 TABLET ORALLY ONCE A DAY TAKING SIMVASTATIN 10 MG TABLET 1 TABLET IN THE EVENING ORALLY ONCE A DAY TAKING CITALOPRAM HYDROBROMIDE 40 MG TABLET 1 TAB ORALLY ONCE A DAY TAKING VITAMIN D 51445 U TABLET 1 TAB ORALLY WEEKLY TAKING SPIRONOLACTONE 50 MG TABLET 1 TABLET ORALLY ONCE A DAY TAKING ASA 81 MGS TAB ORAL DAILY TAKING FUROSEMIDE 40 MG TABLET 1 OR 2 TABS ORALLY ONCE A DAY TAKES ONE TAB ONE DAY AND TWO TABS THE NEXT DAY, NOTES: WHEN NEEDED TAKING FISH OIL 1000 MG CAPSULE 1 CAPSULE ORALLY ONCE A DAY TAKING VENTOLIN HFA 108 (90 BASE) MCG/ACT AEROSOL SOLUTION 2 PUFFS NEEDED INHALATION FOUR TIMES DAILY NEEDED TAKING BACLOFEN 10 MG TABLET 1 TABLET WITH FOOD OR MILK ORALLY BID NOT-TAKING METFORMIN HCL 500 MG TABLET 1 TABLET WITH MEALS ORALLY TWICE A DAY MEDICATION LIST REVIEWED AND RECONCILED WITH THE PATIENT PAST MEDICAL HISTORY ESSENTIAL HYPERTENSION LUMBAR SPONDYLOSIS CREVICAL SPONDLOSIS DIABETES OBESITY INFLAMMATORY AND TOXIC NEUROPATHY DIFFICULTY BREATHING/WHEEZING SOLITARY NODULE OF LEFT LUNG CHF ALLERGIES LISINOPRIL: INCREASED SOB - ALLERGY LIPITOR: SOB, SEVERE BONE PAIN - ALLERGY SEASONAL: WATERY EYES, SNEEZING, RUNNY NOSE - ALLERGY SURGICAL HISTORY BILATERAL CATARACT REMOVAL 2013 HYSTERECTOMY 1994 APPENDECTOMY 1970 TUBAL LIGATION 1981 LEFT HIP 01/13/182017 RIGHT SHOULDER REPAIR 03/2018 FAMILY HISTORY FATHER: 75 YRS, DIAGNOSED WITH HEART DISEASE MOTHER: 74 YRS, DIABETES 3 SON(S) , 1 DAUGHTER(S) - HEALTHY. MOM DUE TO SEPSIS. SOCIAL HISTORY GENERAL: TOBACCO USE ARE YOU A:CURRENT SMOKER ARE YOU INTERESTED IN QUITTING?READY TO QUIT CURRENTLY TRYING TO CUT BACK, GOING TO TALK TO PCP ABOUT GETTING PATCHES COUNSELED THE PATIENT ON TOBACCO USE, CESSATION [id number]/27/2019 HOW MANY CIGARETTES A DAY DO YOU SMOKE?6-10 HOW SOON AFTER YOU WAKE UP DO YOU SMOKE YOUR FIRST CIGARETTE?6-30 MIN HOW OFTEN DO YOU SMOKE CIGARETTES?EVERY DAY PATIENT COUNSELED ON THE DANGERS OF TOBACCO USE AND URGED TO QUIT:03/21/2018 HAS NIGHTMARES WITH CHANTIX NICOTINE PATCHES DONT SKICK TO SKIN GUM IS UGLY TASING PT WANTS TO TRY WELLBUTRIN ALCOHOL SCREENING DID YOU HAVE A DRINK CONTAINING ALCOHOL IN THE PAST YEAR?NO POINTS0 INTERPRETATIONNEGATIVE RECREATIONAL DRUG USE DRUG USE?NO CAFFEINE CAFFEINE USE?YES HOW OFTEN AND HOW MUCH? 2 CUPS COFFEE/DAY SABIANIST [id number] NONE LANGUAGE LANGUAGES SPOKEN:ROMANSH EDUCATION LEVEL OF EDUCATION:HIGH SCHOOL LEARNING BARRIERS / SPECIAL NEEDS CHANGE FROM LAST VISIT?NO BARRIERS TO LEARNING?NO HEARING IMPAIRED?NO VISION IMPAIRED?YES :CORRECTIVE LENSES COGNITIVELY IMPAIRED?NO READINESS TO LEARN?YES LEARNING PREFERENCES?YES :BOOKLETS, HANDOUTS, DEMONSTRATION/VERBAL INSTRUCTION LEARNING CAPABILITIES PRESENT?NO EMOTIONAL BARRIERS?NO SPECIAL DEVICES?NO HEARING AIDE TECHNICIAN NEEDED?NO OCCUPATION: UNEMPLOYED, [employer]. DIET: CARBOHYDRATE CONTROLLED. EXERCISE: NO REGULAR EXERCISE. MARITAL STATUS: .. OTHERS AT HOME: S.O.,SON, SON'S GIRLFRIEND. PAIN CLINIC PFS, CLERGY, PUBLIC HEALTH REFERRALS PFS REFERRAL NEEDED?NO CLERGY REFERRAL NEEDED?NO PUBLIC HEALTH REFERRAL NEEDED?NO WAS THE PROVIDER NOTIFIED OF ANY PERTINENT INFO?NO HAS THE PATIENT BEEN EDUCATED REGARDING HIS/HER PLAN OF CARE?YES PLEASE DOCUMENT ANY ADDTIONAL DETAILS. ORIENTATION TO PAIN CENTER AND PLAN OF CARE PROVIDED AND PT. VERBALIZED UNDERSTANDING. HAS THE PATIENT BEEN EDUCATED REGARDING PAIN, THE RISK FOR PAIN, THE IMPORTANCE OF EFFECTIVE PAIN MANAGEMENT, AND THE PAIN ASSESSMENT PROCESS?YES ADVANCE DIRECTIVE ADVANCE DIRECTIVE DISCUSSED WITH PATIENT:YES DECLINED REVIEWED WITH PATIENT 03/21/18 1133 JS. HOSPITALIZATION/MAJOR DIAGNOSTIC PROCEDURE SURGERIES AND CHILDBIRTH CHF 09/2016 REVIEW OF SYSTEMS REVIEWED BY: PROVIDER: DENICE Cardona CONSTITUTIONAL: ANY CHANGE IN YOUR MEDICAL CONDITION? NO . CHILLS NO . FEVER NO . INFECTION: DO YOU HAVE NEW INFECTIONS? NO . DO YOU HAVE HISTORY OF MRSA? NO . MUSCULOSKELETAL: ANY NEW PATTERNS OF PAIN OR NUMBNESS? NO . GASTROENTEROLOGY: ANY NEW CHANGE IN BOWEL CONTROL? NO . GENITOURINARY: ANY NEW CHANGE IN BLADDER CONTROL? NO . IS THERE A CHANCE YOU COULD BE ? NO . HEMATOLOGY/LYMPH: DO YOU TAKE ANY BLOOD THINNERS? (FOR EXAMPLE- COUMADIN, PLAVIX, AGGRENOX, PLATEL, PRADAXA, OR XARELTO) NO . WHEN WAS YOUR LAST DOSE? DATE: TIME: . NEUROLOGY: HAVE YOU FALLEN IN THE PAST 12 MONTHS? YES, PRIOR TO LAST VISIT . ANY NEW EXTREMITY NUMBNESS OR WEAKNESS? NO . CARDIOLOGY: DO YOU HAVE A PACEMAKER OR DEFIBRILLATOR? NO . RESPIRATORY: HAVE YOU BEEN SICK IN THE PAST WEEK? YES, ALLERGIES . FEVER NO . FLU LIKE SYMPTOMS? NO . COUGH YES, CLEAR SPUTUM COUGH . INTEGUMENTARY: DO YOU HAVE ANY RASHES OR OPEN SORES? NO . ALLERGIC/IMMUNO: ARE YOU ALLERGIC TO IV DYE? NO . ANY NEW ALLERGIES? NO . PSYCHIATRIC: DO YOU HAVE THOUGHTS OF HURTING YOURSELF OR SOMEONE ELSE? NO . ARE YOU ABUSED, NEGLECTED, OR IN AN UNSAFE ENVIRONMENT? NO . ENDOCRINOLOGY: ARE YOU DIABETIC? YES . OTHER: DO YOU NEED ANY PRESCRIPTIONS? NO . IF YES, PLEASE LIST: ____ . ANY NEW PROBLEMS WITH YOUR MEDICATIONS? NO, PT STATES METFORMIN D/C'D AND NEW RX PRESCRIBED METFORMIN AND ANOTHER DRUG COMBINATION PILL NAME? . WHEN DID YOU LAST EAT? ____ . WHEN DID YOU LAST DRINK? ____ . WHAT DID YOU LAST DRINK? ____ . NAME OF PERSON DRIVING YOU HOME? ____ . DO YOU HAVE ANY OTHER QUESTIONS OR CONCERNS NO . VITAL SIGNS WT 151.8 LBS, HT 51 IN, BMI 41.03 INDEX, BP 140/80 MM HG, HR 96 /MIN, RR 16 /MIN, TEMP 98.1 F, OXYGEN SAT % 93%, NA INITIALS AW 1336, REVIEWED BY: EM. EXAMINATION GENERAL EXAMINATION: GENERAL APPEARANCE:NO ACUTE DISTRESS, WELL NOURISHED AND HYDRATED. PSYCHAPPROPRIATE MOOD AND AFFECT . LUNGS:CLEAR TO AUSCULTATION BILATERALLY, NO WHEEZES, RHONCHI, RALES. HEART:NO MURMURS, REGULAR RATE AND RHYTHM. BACK: NO CVA TENDERNESS, SLR NEGATIVE BILATERAL.. ASSESSMENTS INTERVERTEBRAL DISC DISORDERS WITH RADICULOPATHY, LUMBOSACRAL REGION - M51.17 SPONDYLOSIS WITHOUT MYELOPATHY OR RADICULOPATHY, LUMBOSACRAL REGION - M47.817 SPONDYLOSIS WITHOUT MYELOPATHY OR RADICULOPATHY, LUMBAR REGION - M47.816 TREATMENT OTHERS CLINICAL NOTES: PATIENT ADVISED TO CONTACT PAIN CLINIC IF PAIN RETURNS OR WORSENS. I FPAIN FREE IN 6 MONTHS, WILLCONSIDER DISCHARGE. PROCEDURE CODES FA211 ESTABILISHED PATIENT [facility] CHARGE DISPOSITION & COMMUNICATION FOLLOW UP 6 MONTHS ELECTRONICALLY SIGNED BY LUIS FELIPE DE LA TORRE ON 08/25/2018 AT 05:03 PM EDT DISCLAIMER : THIS IS A VISIT SUMMARY EXTRACTED FROM THE [employer] CHART. IT IS NOT A COPY OF THE [employer] PROGRESS NOTE. BRIAN
== END ==
LOC: M PAIN 13:00
PROVIDERS: ATTEND Nurse Practitioner Family
DX: M51.17 Intervertebral disc disorders with radiculopathy, lumbosacral region (principal); M47.817 Spondylosis without myelopathy or radiculopathy, lumbosacral region; M47.816 Spondylosis without myelopathy or radiculopathy, lumbar region; G89.29 Other chronic pain; I10 Essential (primary) hypertension; E11.9 Type 2 diabetes mellitus without complications; E66.01 Morbid (severe) obesity due to excess calories; Z68.41 Body mass index [BMI] 40.0-44.9, adult; Z86.79 Personal history of other diseases of the circulatory system; F17.210 Nicotine dependence, cigarettes, uncomplicated; Z88.8 Allergy status to other drugs, medicaments and biological substances; Z79.82 Long term (current) use of aspirin; Z79.84 Long term (current) use of oral hypoglycemic drugs; Z79.899 Other long term (current) drug therapy

== ENCOUNTER → 2020-07-18 | Outpatient (CLI) | payer MEDICARE, MEDICAID ==
[~2020-07-18] MED LIST changes: -ASPI1TAB PO; +ASPI81TA26 PO; -GLYB5TA PO; +GLYB5TAB6 PO; +ISOS1TAB35 PO; -ISOS30TA4 PO; +METF-838 PO; -METF500T4 PO; -SIMV10TA2 PO; +SIMV10TA21 PO; -SIMV20TA2 PO; +SIMV20TA22 PO
--- NOTE | 2020-07-18 15:12 | REPMRS ---
Patient History The patient states she had a clinical breast exam in 05/2020. Patient is postmenopausal. No known family history of cancer. No Hormone Replacement Therapy Digital Woman Screen Mammo: July 18, 2020 - Exam #: [id number] Bilateral CC and MLO view(s) were taken. Technologist: Connie Grove, Technologist Prior study comparison: June 16, 2018, bilateral digital mammo screening bilat, performed at [facility]. October 02, 2014, bilateral digital woman screen mammo, performed at [facility]. December 14, 2012, bilateral digital woman screen mammo, performed at [facility]. FINDINGS: The breast tissue is almost entirely fat. The Volpara volumetric breast density category is: A. There has been no change in the appearance of the mammogram from the prior studies. There is no interval development of dominant mass, architectural distortion, or grouped microcalcification typical of malignancy. 3-D tomosynthesis shows no additional findings. Assessment: BI-RADS/ACR category 1 mammogram. Negative Mammogram. Recommendation Routine screening mammogram of both breasts in 1 year (for women over age 40). This patient's [facility] Lifetime Breast Cancer RIsk is estimated at 3.3 %. This mammogram was interpreted with the aid of an FDA-approved computer-aided dectection system. Electronically Signed By: Loi Khan MD 07/18/20 0685
== END ==
LOC: M WHC 11:37
PROVIDERS: ATTEND Family Medicine
DX: Z12.31 Encounter for screening mammogram for malignant neoplasm of breast (principal); Z78.0 Asymptomatic menopausal state

== ENCOUNTER → 2020-07-18 | Outpatient (CLI) | payer MEDICAID, MEDICARE ==
--- NOTE | 2020-07-18 18:44 | REP ---
INDICATION: NICOTINE DEPEND. COMPARISON: Comparison chest CT studies are from 01 February 2018 and 29 October 2016.. TECHNIQUE: Low-dose screening exam. Helical scanning is performed in 3 mm axial images are provided at lung only windows. FINDINGS: The previously noted right lower lobe nodule is again seen. This is slightly more prominent in size measuring 4 x 6 mm today, originally 3 x 4 mm. No new pulmonary nodule is appreciated. There is bibasilar linear scarring again noted unchanged. No lung mass or infiltrate is seen. Some vascular calcification is observed. There is evidence of a stable right renal cyst. IMPRESSION: Lung RADS category 4 A findings. The previously noted small right lower lobe nodule appears a little larger. Follow-up CT study recommended in 3-6 months. <Electronically signed by Loi Khan > 07/18/20 [id number]
== END ==
LOC: M RAD 13:01
PROVIDERS: ATTEND Family Medicine
DX: Z12.31 Encounter for screening mammogram for malignant neoplasm of breast (principal); Z78.0 Asymptomatic menopausal state; Z12.2 Encounter for screening for malignant neoplasm of respiratory organs; F17.210 Nicotine dependence, cigarettes, uncomplicated; R91.8 Other nonspecific abnormal finding of lung field; N28.1 Cyst of kidney, acquired

== ENCOUNTER 2023-10-31 22:58 | Emergency (ER) | payer MEDICARE, MEDICAID ==
[~2023-10-31] VITALS: Ht 152.4 cm; Wt 61.4 kg
[~2023-10-31 22:58] MED LIST changes: -CITA40TA4 PO; +CITA40TA7 PO; +LOSA50TA28 PO; -LOSA50TA88 PO
[2023-11-01] MEDS ORDERED: HYDR-3713 PO (01:40)
[2023-11-01] MEDS ORDERED: ANEXSIA, NORCO 7.5MG/325MG TABLET(HYDROCODONE/APAP) PO ONE (01:45)
[2023-11-01 02:15] VITALS: BP 128/84; TEMP 98.5; O2SAT 98
== END 2023-11-01 02:19 | disposition home or self-care (01) ==
LOC: M ED 22:58
DX: S42.201A Unspecified fracture of upper end of right humerus, initial encounter for closed fracture (principal); Y92.019 Unspecified place in single-family (private) house as the place of occurrence of the external cause; Y93.9 Activity, unspecified; Y99.9 Unspecified external cause status; W19.XXXA Unspecified fall, initial encounter; E11.9 Type 2 diabetes mellitus without complications; I10 Essential (primary) hypertension; J44.9 Chronic obstructive pulmonary disease, unspecified; E78.5 Hyperlipidemia, unspecified; Z88.8 Allergy status to other drugs, medicaments and biological substances; Z79.1 Long term (current) use of non-steroidal anti-inflammatories (NSAID); Z79.51 Long term (current) use of inhaled steroids; Z79.84 Long term (current) use of oral hypoglycemic drugs; Z79.899 Other long term (current) drug therapy